=== PATIENT | male | born 1985 | race Caucasian/White ===

== ENCOUNTER 2016-12-26 18:31 | Inpatient (IN) | payer OTHER ==
[2016-12-26 19:22] VITALS: BMI 25.0
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
[2016-12-26] MEDS ORDERED: diphenhydrAMINE HCL 50 MG CAPSULE PO PRN (21:15)
[2016-12-26] MEDS ORDERED: hydrOXYzine PAMOATE 50 MG CAPSULE (FP) PO PRN (21:15)
[2016-12-26] MEDS ORDERED: ACETAMINOPHEN 325 MG TABLET (FP) PO PRN (21:15)
[2016-12-26] MEDS ORDERED: guaiFENesin/D-METHORPHAN HB 10 ML UNIT-DOSE CUPS PO PRN (21:15)
[2016-12-26] MEDS ORDERED: MENTHOL/PHENOL 1 EACH UD MM PRN (21:15)
[2016-12-26] MEDS ORDERED: LOPERAMIDE HCL 2 MG CAPSULE PO PRN (21:15)
[2016-12-26] MEDS ORDERED: MAGNESIUM CITRATE 300 ML BOTTLE PO PRN (21:15)
[2016-12-26] MEDS ORDERED: P-EPHED 60MG/TRIPROLIDI 2.5MG TABLET PO PRN (21:15)
[2016-12-26] MEDS ORDERED: MAGNESIUM HYDROX 2400MG/30ML ORAL SUSPENSION 30 ML CUP PO PRN (21:15)
[2016-12-26] MEDS: THIAMINE HCL 100 MG TABLET (FP) PO SCH (22:12)
[2016-12-26] MEDS: NICOTINE 21 MG/24 HOURS TOPICAL PATCH TD SCH (22:14)
[2016-12-26] MEDS: NICOTINE POLACRILEX 2 MG GUM BC PRN (22:15)
[2016-12-26 23:07] LABS: URINE APPEARANCE CLEAR; URINE BILIRUBIN NEGATIVE (NEGATIVE); URINE BLOOD NEGATIVE (NEGATIVE); URINE COLOR STRAW; URINE GLUCOSE (UA) NEGATIVE (NEGATIVE); URINE KETONE NEGATIVE (NEGATIVE); URINE LEUK ESTERASE NEGATIVE (NEGATIVE); URINE NITRITE NEGATIVE (NEGATIVE); URINE PROTEIN NEGATIVE (NEGATIVE); URINE UROBILINOGEN NEGATIVE E.U./dl (0.2-1.0)
[2016-12-27] MEDS: NICOTINE 21 MG/24 HOURS TOPICAL PATCH TD SCH (09:44)
[2016-12-27] MEDS: PRENATAL VITAMINS W/ FOLIC ACID TABLET (FP) PO SCH (09:44)
[2016-12-27 11:03] LABS: MCHC 33.1 g/dl (32.0-35.9); MEAN CELL VOLUME 93.5 fl (80-96); MEAN PLT VOLUME 9.1 fl (7.5-11.1); PLATELET COUNT 189 K/MM3 (134-434); WHITE BLOOD COUNT 6.7 K/mm3 (4.0-10.0)
[2016-12-27 11:14] LABS: ALBUMIN 3.9 g/dl (3.4-5.0); ANION GAP 9 (8-16); CO2 30 mmol/L (21-32); GLUCOSE,RANDOM 109 mg/dL (74-106); SGOT/AST 44 U/L (15-37); SGPT/ALT 110 U/L (12-78)
[2016-12-27 11:16] LABS: ALK PHOS 79 U/L (45-117); BILIRUBIN,TOTAL 0.6 mg/dL (0.2-1.0); TOT PROT 6.7 g/dl (6.4-8.2)
[2016-12-27 12:03] LABS: HIV 1 & 2 AB NEGATIVE; HIV 1 AGp24 NEGATIVE
--- NOTE | 2016-12-27 12:37 | EKG ---
Test Reason : Blood Pressure : / mmHG Vent. Rate : 090 BPM Atrial Rate : 090 BPM P-R Int : 134 ms QRS Dur : 090 ms QT Int : 356 ms P-R-T Axes : 058 056 044 degrees QTc Int : 435 ms NORMAL SINUS RHYTHM NORMAL ECG NO PREVIOUS ECGS AVAILABLE Confirmed by JAQUAN URRUTIA MD ([id number]) on 12/27/2016 12:36:55 PM Referred By: Confirmed By:JAQUAN URRUTIA MD
[2016-12-27] MEDS: THIAMINE HCL 100 MG TABLET (FP) PO SCH (21:37)
[2016-12-27] MEDS: NICOTINE POLACRILEX 2 MG GUM BC PRN (21:39)
[2016-12-28] MEDS: NICOTINE 21 MG/24 HOURS TOPICAL PATCH TD SCH ×2 (09:49→10:59)
[2016-12-28] MEDS: PRENATAL VITAMINS W/ FOLIC ACID TABLET (FP) PO SCH (09:49)
[2016-12-28] MEDS: SELENIUM SULFIDE 2.5% LOTION 4 OZ. TP SCH (09:50)
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
[2016-12-28] MEDS: IBUPROFEN 400 MG TABLET (FP) PO PRN (12:11)
[2016-12-28] MEDS: THIAMINE HCL 100 MG TABLET (FP) PO SCH (21:52)
[2016-12-28] MEDS: QUEtiapine FUMARATE 100 MG TABLET (FP) PO SCH (21:52)
[2016-12-29] MEDS: NICOTINE POLACRILEX 2 MG GUM BC PRN (10:21)
[2016-12-29] MEDS: PRENATAL VITAMINS W/ FOLIC ACID TABLET (FP) PO SCH (10:21)
[2016-12-29] MEDS: SELENIUM SULFIDE 2.5% LOTION 4 OZ. TP SCH (10:22)
[2016-12-29] MEDS: NICOTINE 21 MG/24 HOURS TOPICAL PATCH TD SCH (10:23)
[2016-12-29] MEDS: QUEtiapine FUMARATE 100 MG TABLET (FP) PO SCH (22:12)
[2016-12-29] MEDS: THIAMINE HCL 100 MG TABLET (FP) PO SCH (22:12)
[2016-12-30] MEDS: SELENIUM SULFIDE 2.5% LOTION 4 OZ. TP SCH (09:47)
[2016-12-30] MEDS: NICOTINE 21 MG/24 HOURS TOPICAL PATCH TD SCH (09:47)
[2016-12-30] MEDS: PRENATAL VITAMINS W/ FOLIC ACID TABLET (FP) PO SCH (09:47)
[2016-12-30] MEDS: NICOTINE POLACRILEX 2 MG GUM BC PRN (09:50)
[2016-12-30] MEDS: THIAMINE HCL 100 MG TABLET (FP) PO SCH (22:01)
[2016-12-30] MEDS: QUEtiapine FUMARATE 100 MG TABLET (FP) PO SCH (22:01)
[2016-12-31] MEDS: PRENATAL VITAMINS W/ FOLIC ACID TABLET (FP) PO SCH (09:59)
[2016-12-31] MEDS: NICOTINE 21 MG/24 HOURS TOPICAL PATCH TD SCH (09:59)
[2016-12-31] MEDS: SELENIUM SULFIDE 2.5% LOTION 4 OZ. TP SCH (10:01)
[2016-12-31] MEDS: NICOTINE POLACRILEX 2 MG GUM BC PRN ×2 (10:02→21:51)
[2016-12-31] MEDS: THIAMINE HCL 100 MG TABLET (FP) PO SCH (21:50)
[2016-12-31] MEDS: QUEtiapine FUMARATE 100 MG TABLET (FP) PO SCH (21:50)
[2017-01-01] MEDS: NICOTINE 21 MG/24 HOURS TOPICAL PATCH TD SCH (09:56)
[2017-01-01] MEDS: PRENATAL VITAMINS W/ FOLIC ACID TABLET (FP) PO SCH (09:56)
[2017-01-01] MEDS: SELENIUM SULFIDE 2.5% LOTION 4 OZ. TP SCH (10:00)
[2017-01-01] MEDS: MAG HYDROX/AL HYDROX/SIMETH 30 ML UNIT-DOSE CUP PO PRN (12:54)
[2017-01-01] MEDS: NICOTINE POLACRILEX 2 MG GUM BC PRN (21:51)
[2017-01-01] MEDS: QUEtiapine FUMARATE 100 MG TABLET (FP) PO SCH (21:51)
[2017-01-01] MEDS: THIAMINE HCL 100 MG TABLET (FP) PO SCH (21:51)
[2017-01-02] MEDS: PRENATAL VITAMINS W/ FOLIC ACID TABLET (FP) PO SCH (11:07)
[2017-01-02] MEDS: SELENIUM SULFIDE 2.5% LOTION 4 OZ. TP SCH (11:07)
[2017-01-02] MEDS: NICOTINE 21 MG/24 HOURS TOPICAL PATCH TD SCH (11:09)
[2017-01-02] MEDS: NICOTINE POLACRILEX 2 MG GUM BC PRN (11:12)
[2017-01-02] MEDS: CLOTRIMAZOLE/BETAMET DIPROP 15 GM TUBE TP SCH (22:23)
[2017-01-02] MEDS: QUEtiapine FUMARATE 100 MG TABLET (FP) PO SCH (22:23)
[2017-01-02] MEDS: THIAMINE HCL 100 MG TABLET (FP) PO SCH (22:23)
[2017-01-02] MEDS: IBUPROFEN 400 MG TABLET (FP) PO PRN (22:25)
[2017-01-03] MEDS: CLOTRIMAZOLE/BETAMET DIPROP 15 GM TUBE TP SCH ×2 (10:13→21:50)
[2017-01-03] MEDS: SELENIUM SULFIDE 2.5% LOTION 4 OZ. TP SCH (10:13)
[2017-01-03] MEDS: PRENATAL VITAMINS W/ FOLIC ACID TABLET (FP) PO SCH (10:14)
[2017-01-03] MEDS: NICOTINE 21 MG/24 HOURS TOPICAL PATCH TD SCH (10:14)
[2017-01-03] MEDS: IBUPROFEN 400 MG TABLET (FP) PO PRN (10:16)
[2017-01-03] MEDS: MAG HYDROX/AL HYDROX/SIMETH 30 ML UNIT-DOSE CUP PO PRN (10:56)
[2017-01-03] MEDS: QUEtiapine FUMARATE 100 MG TABLET (FP) PO SCH (21:50)
[2017-01-03] MEDS: THIAMINE HCL 100 MG TABLET (FP) PO SCH (21:50)
[2017-01-04] MEDS: PRENATAL VITAMINS W/ FOLIC ACID TABLET (FP) PO SCH (10:01)
[2017-01-04] MEDS: NICOTINE 21 MG/24 HOURS TOPICAL PATCH TD SCH (10:02)
[2017-01-04] MEDS: CLOTRIMAZOLE/BETAMET DIPROP 15 GM TUBE TP SCH ×2 (10:02→21:30)
[2017-01-04] MEDS: NICOTINE POLACRILEX 2 MG GUM BC PRN (10:03)
[2017-01-04] MEDS: SELENIUM SULFIDE 2.5% LOTION 4 OZ. TP SCH (10:05)
--- NOTE | 2017-01-04 10:19 | PN ---
Psychiatric Progress Note Vital Signs: Vital Signs Period Temp Pulse Resp BP Sys/Astorga Pulse Ox Last 24 Hr 98.0 F 95 18-18 134/80 Date of Session: 01/04/17 Chief Complaint:: Insomnia HPI: Patient addressing Opoid and Cocaine Dependence comorbid with Nicotine Dependence and Mood Disorder ROS: Hepatitis C Current Medications: Active Medications Generic Name Dose Route Start Last Admin Trade Name Freq PRN Reason Stop Dose Admin Al Hydroxide/Mg Hydroxide 30 ml 12/26/16 21:15 01/03/17 10:56 Mylanta Oral Suspension - PO 30 ml Q6H PRN Administration DYSPEPSIA Clotrimazole 1 applic 01/02/17 22:00 01/04/17 10:02 Lotrisone Cream (Small Tube) TP Not Given BID KYLAH Diphenhydramine HCl 50 mg 12/26/16 21:15 Benadryl - PO HSMR1 PRN INSOMNIA Eucalyptus/Menthol/Phenol/Sorbitol 1 each 12/26/16 21:15 Cepastat Lozenge - MM Q4H PRN SORE THROAT Guaifenesin 10 ml 12/26/16 21:15 Robitussin Dm - PO Q6H PRN COUGH Hydroxyzine Pamoate 50 mg 12/26/16 21:15 Vistaril - PO Q4H PRN AGITATION Ibuprofen 400 mg 12/26/16 21:15 01/03/17 10:16 Motrin - PO 400 mg Q6H PRN Administration SEVERE PAIN Loperamide HCl 4 mg 12/26/16 21:15 Imodium - PO Q6H PRN DIARRHEA Magnesium Citrate 300 ml 12/26/16 21:15 Citroma - PO Q48H PRN CONSTIPATION Magnesium Hydroxide 30 ml 12/26/16 21:15 Milk Of Magnesia - PO DAILY PRN CONSTIPATION Nicotine 21 mg 12/26/16 21:15 01/04/17 10:02 Nicoderm Patch - TD 21 mg DAILY KYLAH Administration Nicotine Polacrilex 2 mg 12/26/16 21:15 01/04/17 10:03 Nicorette Gum - BC 2 mg Q2H PRN Administration NICOTINE REPLACEMENT RX Multivit/Folic Acid/Iron 1 tab 12/27/16 10:00 01/04/17 10:01 Vitamins (Sjr) - PO 1 tab DAILY KYLAH Administration Pseudoephedrine/Triprolidine 1 combo 12/26/16 21:15 Actifed - PO TID PRN NASAL CONGESTION Quetiapine Fumarate 100 mg 12/28/16 22:00 01/03/17 21:50 Seroquel - PO 100 mg HS KYLAH Administration Thiamine HCl 100 mg 12/26/16 22:00 01/03/17 21:50 Vitamin B1 - PO 100 mg HS KYLAH Administration Medication(s) Change(s): Increase Seroquel dosage to 200 mg po HS Current Side Effect: No Lab tests ordered: No Lab tests reviewed: Yes Provider note:: Patient reports experiencing difficulty to sleep. Told instructional writer that he has been sleeping poorly despite taking Seroquel 100 mg po HS. Claims that in the past, he was on Seroquel 200 mg po Hs and slept well on that dose. Total face to face time:: 25 Mental Status Exam - Mental Status Exam Alert and Oriented to: Time, Place, Person Cognitive Function: Fair Patient Appearance: Well Groomed Mood: Hopeful, Euthymic Affect: Appropriate Patient Behavior: Cooperative Speech Pattern: Clear Voice Loudness: Normal Thought Process: Intact Thought Disorder: Not Present Hallucinations: Denies Suicidal Ideation: Denies Homicidal Ideation: Denies Insight/Judgement: Fair Sleep: Poorly Appetite: Good Muscle strength/Tone: Normal Gait/Station: Normal Psychiatric Treatment Plan - Problem List (1) Opioid dependence Current Visit: No (2) Cocaine dependence, uncomplicated Current Visit: No (3) Nicotine dependence Current Visit: No Qualifiers: Nicotine product type: cigarettes Substance use status: uncomplicated Qualified Code(s): F17.210 - Nicotine dependence, cigarettes, uncomplicated (4) Mood disorder Current Visit: Yes (5) Hepatitis C Current Visit: Yes Initial treatment plan: 1) Discontinue Seroquel 100 mg po HS. 2) Start Seroquel 200 mg po HS. 3) Monitor progress
[2017-01-04] MEDS: IBUPROFEN 400 MG TABLET (FP) PO PRN (19:54)
[2017-01-04] MEDS: THIAMINE HCL 100 MG TABLET (FP) PO SCH (21:30)
[2017-01-04] MEDS: QUEtiapine FUMARATE 200 MG TABLET PO SCH (21:30)
[2017-01-05] MEDS: CLOTRIMAZOLE/BETAMET DIPROP 15 GM TUBE TP SCH ×2 (10:14→21:31)
[2017-01-05] MEDS: PRENATAL VITAMINS W/ FOLIC ACID TABLET (FP) PO SCH (10:14)
[2017-01-05] MEDS: NICOTINE 21 MG/24 HOURS TOPICAL PATCH TD SCH (10:14)
[2017-01-05] MEDS: MAG HYDROX/AL HYDROX/SIMETH 30 ML UNIT-DOSE CUP PO PRN (11:49)
[2017-01-05] MEDS: THIAMINE HCL 100 MG TABLET (FP) PO SCH (21:30)
[2017-01-05] MEDS: QUEtiapine FUMARATE 200 MG TABLET PO SCH (21:30)
[2017-01-05] MEDS: RANITIDINE HCL 150 MG TABLET (FP) PO SCH (21:30)
[2017-01-05] MEDS: IBUPROFEN 400 MG TABLET (FP) PO PRN (21:33)
[2017-01-06] MEDS: NICOTINE 21 MG/24 HOURS TOPICAL PATCH TD SCH (09:55)
[2017-01-06] MEDS: RANITIDINE HCL 150 MG TABLET (FP) PO SCH ×2 (09:55→21:22)
[2017-01-06] MEDS: PRENATAL VITAMINS W/ FOLIC ACID TABLET (FP) PO SCH (09:55)
[2017-01-06] MEDS: SELENIUM SULFIDE 2.5% LOTION 4 OZ. TP SCH (09:56)
[2017-01-06] MEDS: CLOTRIMAZOLE/BETAMET DIPROP 15 GM TUBE TP SCH ×2 (09:56→21:22)
[2017-01-06] MEDS: THIAMINE HCL 100 MG TABLET (FP) PO SCH (21:22)
[2017-01-06] MEDS: QUEtiapine FUMARATE 200 MG TABLET PO SCH (21:22)
[2017-01-06] MEDS: IBUPROFEN 400 MG TABLET (FP) PO PRN (21:23)
[2017-01-07] MEDS: NICOTINE 21 MG/24 HOURS TOPICAL PATCH TD SCH (10:02)
[2017-01-07] MEDS: RANITIDINE HCL 150 MG TABLET (FP) PO SCH ×2 (10:02→21:47)
[2017-01-07] MEDS: PRENATAL VITAMINS W/ FOLIC ACID TABLET (FP) PO SCH (10:02)
[2017-01-07] MEDS: CLOTRIMAZOLE/BETAMET DIPROP 15 GM TUBE TP SCH ×2 (10:03→21:47)
[2017-01-07] MEDS: SELENIUM SULFIDE 2.5% LOTION 4 OZ. TP SCH (10:03)
[2017-01-07] MEDS: IBUPROFEN 400 MG TABLET (FP) PO PRN (13:41)
[2017-01-07] MEDS: THIAMINE HCL 100 MG TABLET (FP) PO SCH (21:47)
[2017-01-07] MEDS: QUEtiapine FUMARATE 200 MG TABLET PO SCH (21:47)
[2017-01-08] MEDS: CLOTRIMAZOLE/BETAMET DIPROP 15 GM TUBE TP SCH ×2 (10:01→21:39)
[2017-01-08] MEDS: SELENIUM SULFIDE 2.5% LOTION 4 OZ. TP SCH (10:01)
[2017-01-08] MEDS: RANITIDINE HCL 150 MG TABLET (FP) PO SCH ×2 (10:01→21:39)
[2017-01-08] MEDS: PRENATAL VITAMINS W/ FOLIC ACID TABLET (FP) PO SCH (10:01)
[2017-01-08] MEDS: NICOTINE 21 MG/24 HOURS TOPICAL PATCH TD SCH (10:02)
[2017-01-08] MEDS: IBUPROFEN 400 MG TABLET (FP) PO PRN (12:12)
[2017-01-08] MEDS: THIAMINE HCL 100 MG TABLET (FP) PO SCH (21:39)
[2017-01-08] MEDS: QUEtiapine FUMARATE 200 MG TABLET PO SCH (21:39)
[2017-01-09] MEDS: IBUPROFEN 400 MG TABLET (FP) PO PRN (09:04)
[2017-01-09] MEDS: CLOTRIMAZOLE/BETAMET DIPROP 15 GM TUBE TP SCH ×2 (09:05→21:57)
[2017-01-09] MEDS: PRENATAL VITAMINS W/ FOLIC ACID TABLET (FP) PO SCH (09:05)
[2017-01-09] MEDS: RANITIDINE HCL 150 MG TABLET (FP) PO SCH ×2 (09:06→21:57)
[2017-01-09] MEDS: SELENIUM SULFIDE 2.5% LOTION 4 OZ. TP SCH (09:07)
[2017-01-09] MEDS: NICOTINE 21 MG/24 HOURS TOPICAL PATCH TD SCH (09:07)
[2017-01-09] MEDS ORDERED: LIDOCAINE VISCOUS 2% ORAL/TOP 20 ML UNIT-DOSE CUP MM PRN (13:23)
[2017-01-09] MEDS: THIAMINE HCL 100 MG TABLET (FP) PO SCH (21:56)
[2017-01-09] MEDS: QUEtiapine FUMARATE 200 MG TABLET PO SCH (21:56)
[2017-01-10] MEDS: RANITIDINE HCL 150 MG TABLET (FP) PO SCH ×2 (09:49→21:28)
[2017-01-10] MEDS: NICOTINE 21 MG/24 HOURS TOPICAL PATCH TD SCH (09:49)
[2017-01-10] MEDS: CLOTRIMAZOLE/BETAMET DIPROP 15 GM TUBE TP SCH ×2 (09:49→21:28)
[2017-01-10] MEDS: PRENATAL VITAMINS W/ FOLIC ACID TABLET (FP) PO SCH (09:49)
[2017-01-10] MEDS: IBUPROFEN 600 MG TABLET (FP) PO PRN ×2 (09:50→23:14)
[2017-01-10] MEDS: SELENIUM SULFIDE 2.5% LOTION 4 OZ. TP SCH (09:50)
[2017-01-10] MEDS: QUEtiapine FUMARATE 200 MG TABLET PO SCH (21:28)
[2017-01-10] MEDS: THIAMINE HCL 100 MG TABLET (FP) PO SCH (21:28)
[2017-01-11] MEDS: PRENATAL VITAMINS W/ FOLIC ACID TABLET (FP) PO SCH (09:44)
[2017-01-11] MEDS: IBUPROFEN 600 MG TABLET (FP) PO PRN (09:44)
[2017-01-11] MEDS: RANITIDINE HCL 150 MG TABLET (FP) PO SCH ×2 (09:44→21:44)
[2017-01-11] MEDS: CLOTRIMAZOLE/BETAMET DIPROP 15 GM TUBE TP SCH ×2 (09:45→21:44)
[2017-01-11] MEDS: SELENIUM SULFIDE 2.5% LOTION 4 OZ. TP SCH (09:45)
[2017-01-11] MEDS: NICOTINE 21 MG/24 HOURS TOPICAL PATCH TD SCH (09:46)
[2017-01-11] MEDS: QUEtiapine FUMARATE 200 MG TABLET PO SCH (21:44)
[2017-01-11] MEDS: THIAMINE HCL 100 MG TABLET (FP) PO SCH (21:44)
[2017-01-12] MEDS: NICOTINE 21 MG/24 HOURS TOPICAL PATCH TD SCH (09:56)
[2017-01-12] MEDS: RANITIDINE HCL 150 MG TABLET (FP) PO SCH ×2 (09:56→21:50)
[2017-01-12] MEDS: CLOTRIMAZOLE/BETAMET DIPROP 15 GM TUBE TP SCH ×2 (09:56→21:51)
[2017-01-12] MEDS: PRENATAL VITAMINS W/ FOLIC ACID TABLET (FP) PO SCH (09:56)
[2017-01-12] MEDS: SELENIUM SULFIDE 2.5% LOTION 4 OZ. TP SCH (09:57)
[2017-01-12] MEDS: NICOTINE POLACRILEX 2 MG GUM BC PRN (09:58)
[2017-01-12] MEDS: THIAMINE HCL 100 MG TABLET (FP) PO SCH (21:50)
[2017-01-12] MEDS: QUEtiapine FUMARATE 200 MG TABLET PO SCH (21:50)
[2017-01-12] MEDS: IBUPROFEN 600 MG TABLET (FP) PO PRN (21:52)
[2017-01-13] MEDS: PRENATAL VITAMINS W/ FOLIC ACID TABLET (FP) PO SCH (10:09)
[2017-01-13] MEDS: RANITIDINE HCL 150 MG TABLET (FP) PO SCH ×2 (10:09→21:37)
[2017-01-13] MEDS: CLOTRIMAZOLE/BETAMET DIPROP 15 GM TUBE TP SCH ×2 (10:10→21:38)
[2017-01-13] MEDS: NICOTINE 21 MG/24 HOURS TOPICAL PATCH TD SCH (10:10)
[2017-01-13] MEDS ORDERED: COLLOIDAL OATMEAL 1 BAR EACH TP PRN (13:08)
[2017-01-13] MEDS: SELENIUM SULFIDE 2.5% LOTION 4 OZ. TP SCH (14:32)
[2017-01-13] MEDS: QUEtiapine FUMARATE 200 MG TABLET PO SCH (21:37)
[2017-01-13] MEDS: THIAMINE HCL 100 MG TABLET (FP) PO SCH (21:37)
[2017-01-14] MEDS: PRENATAL VITAMINS W/ FOLIC ACID TABLET (FP) PO SCH (10:02)
[2017-01-14] MEDS: RANITIDINE HCL 150 MG TABLET (FP) PO SCH ×2 (10:02→21:25)
[2017-01-14] MEDS: NICOTINE 21 MG/24 HOURS TOPICAL PATCH TD SCH (10:02)
[2017-01-14] MEDS: CLOTRIMAZOLE/BETAMET DIPROP 15 GM TUBE TP SCH ×2 (10:02→21:25)
[2017-01-14] MEDS: QUEtiapine FUMARATE 200 MG TABLET PO SCH (21:25)
[2017-01-14] MEDS: THIAMINE HCL 100 MG TABLET (FP) PO SCH (21:25)
[2017-01-15] MEDS: NICOTINE 21 MG/24 HOURS TOPICAL PATCH TD SCH (10:04)
[2017-01-15] MEDS: PRENATAL VITAMINS W/ FOLIC ACID TABLET (FP) PO SCH (10:04)
[2017-01-15] MEDS: RANITIDINE HCL 150 MG TABLET (FP) PO SCH ×2 (10:04→21:28)
[2017-01-15] MEDS: CLOTRIMAZOLE/BETAMET DIPROP 15 GM TUBE TP SCH ×2 (10:05→21:28)
[2017-01-15] MEDS: IBUPROFEN 600 MG TABLET (FP) PO PRN (12:47)
[2017-01-15] MEDS: QUEtiapine FUMARATE 200 MG TABLET PO SCH (21:28)
[2017-01-15] MEDS: THIAMINE HCL 100 MG TABLET (FP) PO SCH (21:28)
[2017-01-16] MEDS: PRENATAL VITAMINS W/ FOLIC ACID TABLET (FP) PO SCH (09:58)
[2017-01-16] MEDS: RANITIDINE HCL 150 MG TABLET (FP) PO SCH ×2 (09:58→21:42)
[2017-01-16] MEDS: NICOTINE 21 MG/24 HOURS TOPICAL PATCH TD SCH (09:58)
[2017-01-16] MEDS: NICOTINE POLACRILEX 2 MG GUM BC PRN (10:00)
[2017-01-16] MEDS: CLOTRIMAZOLE/BETAMET DIPROP 15 GM TUBE TP SCH ×2 (10:00→21:43)
[2017-01-16] MEDS: SELENIUM SULFIDE 2.5% LOTION 4 OZ. TP SCH (10:00)
[2017-01-16] MEDS: IBUPROFEN 600 MG TABLET (FP) PO PRN (12:14)
[2017-01-16] MEDS: QUEtiapine FUMARATE 200 MG TABLET PO SCH (21:42)
[2017-01-16] MEDS: THIAMINE HCL 100 MG TABLET (FP) PO SCH (21:42)
[2017-01-17] MEDS: PRENATAL VITAMINS W/ FOLIC ACID TABLET (FP) PO SCH (09:37)
[2017-01-17] MEDS: RANITIDINE HCL 150 MG TABLET (FP) PO SCH ×3 (09:37→21:56)
[2017-01-17] MEDS: NICOTINE 21 MG/24 HOURS TOPICAL PATCH TD SCH (09:37)
[2017-01-17] MEDS: CLOTRIMAZOLE/BETAMET DIPROP 15 GM TUBE TP SCH ×3 (09:37→21:55)
--- NOTE | 2017-01-17 19:55 | PN ---
S Progress Note Note: RECEIVED NURSE INFORMED PATIENT WAS ADMITTED ON 12/26/16 NEEDS DIETARY ORDER
[2017-01-17] MEDS: QUEtiapine FUMARATE 200 MG TABLET PO SCH ×2 (21:34→21:55)
[2017-01-17] MEDS: THIAMINE HCL 100 MG TABLET (FP) PO SCH ×2 (21:34→21:55)
[2017-01-17] MEDS ORDERED: COLLOIDAL OATMEAL 1 BAR EACH TP PRN (21:43)
[2017-01-17] MEDS ORDERED: diphenhydrAMINE HCL 50 MG CAPSULE PO PRN (21:44)
[2017-01-17] MEDS ORDERED: LIDOCAINE VISCOUS 2% ORAL/TOP 20 ML UNIT-DOSE CUP MM PRN (21:44)
[2017-01-17] MEDS ORDERED: hydrOXYzine PAMOATE 50 MG CAPSULE (FP) PO PRN (21:44)
[2017-01-17] MEDS ORDERED: guaiFENesin/D-METHORPHAN HB 10 ML UNIT-DOSE CUPS PO PRN (21:44)
[2017-01-17] MEDS ORDERED: LOPERAMIDE HCL 2 MG CAPSULE PO PRN (21:45)
[2017-01-17] MEDS ORDERED: MAG HYDROX/AL HYDROX/SIMETH 30 ML UNIT-DOSE CUP PO PRN (21:45)
[2017-01-17] MEDS ORDERED: MAGNESIUM HYDROX 2400MG/30ML ORAL SUSPENSION 30 ML CUP PO PRN (21:46)
[2017-01-17] MEDS ORDERED: MAGNESIUM CITRATE 300 ML BOTTLE PO PRN (21:46)
[2017-01-17] MEDS ORDERED: NICOTINE POLACRILEX 2 MG GUM BUC PRN (21:47)
[2017-01-17] MEDS ORDERED: MENTHOL/PHENOL 1 EACH UD MM PRN (21:47)
[2017-01-17] MEDS ORDERED: P-EPHED 60MG/TRIPROLIDI 2.5MG TABLET PO PRN (21:48)
[2017-01-18] MEDS: PRENATAL VITAMINS W/ FOLIC ACID TABLET (FP) PO SCH (10:08)
[2017-01-18] MEDS: NICOTINE 21 MG/24 HOURS TOPICAL PATCH TD SCH (10:08)
[2017-01-18] MEDS: SELENIUM SULFIDE 2.5% LOTION 4 OZ. TP SCH (10:09)
[2017-01-18] MEDS: RANITIDINE HCL 150 MG TABLET (FP) PO SCH ×2 (10:09→21:38)
[2017-01-18] MEDS: CLOTRIMAZOLE/BETAMET DIPROP 15 GM TUBE TP SCH ×2 (10:09→21:38)
[2017-01-18] MEDS: QUEtiapine FUMARATE 200 MG TABLET PO SCH (21:38)
[2017-01-18] MEDS: THIAMINE HCL 100 MG TABLET (FP) PO SCH (21:38)
[2017-01-19] MEDS: NICOTINE 21 MG/24 HOURS TOPICAL PATCH TD SCH (10:14)
[2017-01-19] MEDS: PRENATAL VITAMINS W/ FOLIC ACID TABLET (FP) PO SCH (10:15)
[2017-01-19] MEDS: RANITIDINE HCL 150 MG TABLET (FP) PO SCH ×2 (10:15→21:31)
[2017-01-19] MEDS: CLOTRIMAZOLE/BETAMET DIPROP 15 GM TUBE TP SCH ×2 (10:17→21:32)
[2017-01-19] MEDS: IBUPROFEN 600 MG TABLET (FP) PO PRN (10:18)
[2017-01-19] MEDS: QUEtiapine FUMARATE 200 MG TABLET PO SCH (21:31)
[2017-01-19] MEDS: THIAMINE HCL 100 MG TABLET (FP) PO SCH (21:32)
[2017-01-20] MEDS: RANITIDINE HCL 150 MG TABLET (FP) PO SCH ×2 (10:01→21:49)
[2017-01-20] MEDS: PRENATAL VITAMINS W/ FOLIC ACID TABLET (FP) PO SCH (10:01)
[2017-01-20] MEDS: NICOTINE 21 MG/24 HOURS TOPICAL PATCH TD SCH (10:02)
[2017-01-20] MEDS: CLOTRIMAZOLE/BETAMET DIPROP 15 GM TUBE TP SCH ×2 (10:02→21:49)
[2017-01-20] MEDS: SELENIUM SULFIDE 2.5% LOTION 4 OZ. TP SCH (10:04)
[2017-01-20] MEDS: IBUPROFEN 600 MG TABLET (FP) PO PRN (10:05)
[2017-01-20] MEDS: QUEtiapine FUMARATE 200 MG TABLET PO SCH (21:49)
[2017-01-20] MEDS: THIAMINE HCL 100 MG TABLET (FP) PO SCH (21:50)
[2017-01-21] MEDS: CLOTRIMAZOLE/BETAMET DIPROP 15 GM TUBE TP SCH ×2 (09:46→21:57)
[2017-01-21] MEDS: PRENATAL VITAMINS W/ FOLIC ACID TABLET (FP) PO SCH (09:46)
[2017-01-21] MEDS: RANITIDINE HCL 150 MG TABLET (FP) PO SCH ×2 (09:46→21:56)
[2017-01-21] MEDS: NICOTINE 21 MG/24 HOURS TOPICAL PATCH TD SCH (09:46)
[2017-01-21] MEDS: THIAMINE HCL 100 MG TABLET (FP) PO SCH (21:56)
[2017-01-21] MEDS: QUEtiapine FUMARATE 200 MG TABLET PO SCH (21:56)
[2017-01-21] MEDS: IBUPROFEN 600 MG TABLET (FP) PO PRN (21:59)
[2017-01-22] MEDS: NICOTINE 21 MG/24 HOURS TOPICAL PATCH TD SCH (10:30)
[2017-01-22] MEDS: RANITIDINE HCL 150 MG TABLET (FP) PO SCH ×2 (10:30→21:44)
[2017-01-22] MEDS: PRENATAL VITAMINS W/ FOLIC ACID TABLET (FP) PO SCH (10:30)
[2017-01-22] MEDS: CLOTRIMAZOLE/BETAMET DIPROP 15 GM TUBE TP SCH ×2 (10:31→21:46)
[2017-01-22] MEDS: THIAMINE HCL 100 MG TABLET (FP) PO SCH (21:44)
[2017-01-22] MEDS: QUEtiapine FUMARATE 200 MG TABLET PO SCH (21:44)
[2017-01-23 06:47] VITALS: BP 117/73; PULSE 101; TEMP 97.5
[2017-01-23] MEDS: SELENIUM SULFIDE 2.5% LOTION 4 OZ. TP SCH (10:13)
[2017-01-23] MEDS: RANITIDINE HCL 150 MG TABLET (FP) PO SCH (10:13)
[2017-01-23] MEDS: NICOTINE 21 MG/24 HOURS TOPICAL PATCH TD SCH (10:13)
[2017-01-23] MEDS: CLOTRIMAZOLE/BETAMET DIPROP 15 GM TUBE TP SCH (10:13)
[2017-01-23] MEDS: PRENATAL VITAMINS W/ FOLIC ACID TABLET (FP) PO SCH (10:13)
--- NOTE | 2017-01-23 10:18 | PN ---
Psychiatric Progress Note Vital Signs: Vital Signs Period Temp Pulse Resp BP Sys/Astorga Pulse Ox Last 24 Hr 97.5 F 101 16-18 117/73 Date of Session: 01/23/17 Chief Complaint:: discharge visit HPI: Patient addressing Opoid and Cocaine Dependence comorbid with Nicotine Dependence and Mood Disorder ROS: WNL Current Medications: Active Medications Generic Name Dose Route Start Last Admin Trade Name Freq PRN Reason Stop Dose Admin Al Hydroxide/Mg Hydroxide 30 ml 01/17/17 21:45 Mylanta Oral Suspension - PO Q6H PRN DYSPEPSIA Clotrimazole 1 applic 01/17/17 22:00 01/22/17 21:46 Lotrisone Cream (Small Tube) TP Not Given BID KYLAH Colloidal Oatmeal 1 applic 01/17/17 21:43 Aveeno Soap - TP DAILY PRN HYGEINE Diphenhydramine HCl 50 mg 01/17/17 21:44 Benadryl - PO HSMR1 PRN INSOMNIA Eucalyptus/Menthol/Phenol/Sorbitol 1 each 01/17/17 21:47 Cepastat Lozenge - MM Q4H PRN SORE THROAT Guaifenesin 10 ml 01/17/17 21:44 Robitussin Dm - PO Q6H PRN COUGH Hydroxyzine Pamoate 50 mg 01/17/17 21:44 Vistaril - PO Q4H PRN AGITATION Ibuprofen 600 mg 01/17/17 21:44 01/21/17 21:59 Motrin - PO 600 mg Q6H PRN Administration SEVERE PAIN Lidocaine HCl 20 ml 01/17/17 21:44 Xylocaine 2% Viscous Oral - MM Q6HPO PRN ORAL PAIN/MOUTH SORES Loperamide HCl 4 mg 01/17/17 21:45 Imodium - PO Q6H PRN DIARRHEA Magnesium Citrate 300 ml 01/17/17 21:46 Citroma - PO Q48H PRN CONSTIPATION Magnesium Hydroxide 30 ml 01/17/17 21:46 Milk Of Magnesia - PO DAILY PRN CONSTIPATION Nicotine 21 mg 01/18/17 10:00 01/22/17 10:30 Nicoderm Patch - TD 21 mg DAILY KYLAH Administration Nicotine Polacrilex 2 mg 01/17/17 21:47 Nicorette Gum - BUC Q2H PRN NICOTINE REPLACEMENT RX Multivit/Folic Acid/Iron 1 tab 12/27/16 10:00 01/22/17 10:30 Vitamins (Sjr) - PO 1 tab DAILY KYLAH Administration Pseudoephedrine/Triprolidine 1 combo 01/17/17 21:48 Actifed - PO TID PRN NASAL CONGESTION Quetiapine Fumarate 200 mg 01/17/17 22:00 01/22/17 21:44 Seroquel - PO 200 mg HS KYLAH Administration Ranitidine HCl 150 mg 01/17/17 22:00 01/22/17 21:44 Zantac - PO 150 mg BID KYLAH Administration Selenium Sulfide 1 applic 01/18/17 10:00 01/20/17 10:04 Selsun 2.5% Lotion - TP 1 applic [id number] KYLAH Administration Thiamine HCl 100 mg 01/17/17 22:00 01/22/17 21:44 Vitamin B1 - PO 100 mg HS KYLAH Administration Current Side Effect: No Lab tests ordered: No Lab tests reviewed: Yes Provider note:: Patient has compelted today his treatment and met his goals, will continue to address his issues at [facility] inpatient treatment program. He focused on importance of changing attitude for utilization of supports to prevent relapses. Patient continues to finging seroquel to be effective, medication well tolerated, scripts provided. patient is stable for discharge. Total face to face time:: 30 Mental Status Exam - Mental Status Exam Alert and Oriented to: Time, Place, Person Cognitive Function: Grossly Intact Patient Appearance: Well Groomed Mood: Hopeful Affect: Appropriate, Mood Congruent Patient Behavior: Appropriate, Cooperative Speech Pattern: Clear, Appropriate Voice Loudness: Normal Thought Process: Intact, Goal Oriented Thought Disorder: Not Present Hallucinations: Denies Suicidal Ideation: Denies Homicidal Ideation: Denies Insight/Judgement: Fair Sleep: Well Appetite: Good Muscle strength/Tone: Normal Gait/Station: Normal Psychiatric Treatment Plan - Problem List (2) Nicotine dependence Qualifiers: Nicotine product type: cigarettes Substance use status: uncomplicated Qualified Code(s): F17.210 - Nicotine dependence, cigarettes, uncomplicated
== END 2017-01-23 10:50 | disposition home or self-care (01) | DRG 772 ==
LOC: YASAS 18:31 → Y5N 19:10 → UNDODISIN 01-17 09:50
PROVIDERS: ADMIT Psychiatry & Neurology Psychiatry; ATTEND Psychiatry & Neurology Psychiatry
PROC: HZ42ZZZ Group Counseling for Substance Abuse Treatment, Cognitive-Behavioral (ICD-10-PCS; principal; 2017-01-23)
DX: F11.20 Opioid dependence, uncomplicated (principal); F14.20 Cocaine dependence, uncomplicated; F17.210 Nicotine dependence, cigarettes, uncomplicated; F39 Unspecified mood [affective] disorder; F31.89 Other bipolar disorder; Z59.0 Homelessness
CPT/HCPCS: 36415; 80053; 81003; 85027; 86593; 87389; 93005; 93010

== ENCOUNTER 2018-06-09 08:32 | Inpatient (IN) | payer OTHER ==
[2018-06-09 09:15] VITALS: BMI 25.8
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
[2018-06-09] MEDS ORDERED: MAG HYDROX/AL HYDROX/SIMETH 30 ML UNIT-DOSE CUP PO PRN (10:16)
[2018-06-09] MEDS ORDERED: P-EPHED 60MG/TRIPROLIDI 2.5MG TABLET PO PRN (10:16)
[2018-06-09] MEDS ORDERED: guaiFENesin/D-METHORPHAN HB 10 ML UNIT-DOSE CUPS PO PRN (10:16)
[2018-06-09] MEDS ORDERED: hydrOXYzine PAMOATE 25 MG CAPSULE (FP) PO PRN (10:16)
[2018-06-09] MEDS ORDERED: LOPERAMIDE HCL 2 MG CAPSULE PO PRN (10:16)
[2018-06-09] MEDS ORDERED: IBUPROFEN 400 MG TABLET (FP) PO PRN (10:16)
[2018-06-09] MEDS ORDERED: MAGNESIUM HYDROX 2400MG/30ML ORAL SUSPENSION 30 ML CUP PO PRN (10:16)
[2018-06-09] MEDS ORDERED: NICOTINE POLACRILEX 4 MG GUM BUC PRN (10:16)
[2018-06-09] MEDS ORDERED: MAGNESIUM CITRATE 300 ML BOTTLE PO PRN (10:16)
[2018-06-09] MEDS ORDERED: ACETAMINOPHEN 325 MG TABLET (FP) PO PRN (10:16)
[2018-06-09] MEDS ORDERED: MENTHOL/PHENOL 1 EACH UD MM PRN (10:16)
[2018-06-09] MEDS ORDERED: METHADONE HCL 10 MG TABLET (FOR DETOX USE ONLY) PO ONE ×2 (11:00→23:00)
[2018-06-09] MEDS: diazePAM 5 MG TABLET PO PRN (12:28)
[2018-06-09] MEDS: NICOTINE 21 MG/24 HOURS TOPICAL PATCH TD SCH (12:29)
[2018-06-09 17:21] LABS: URINE APPEARANCE CLEAR; URINE BILIRUBIN NEGATIVE (<2.0 mg/dL); URINE COLOR YELLOW; URINE GLUCOSE (UA) NEGATIVE (NEGATIVE); URINE KETONE NEGATIVE (NEGATIVE); URINE LEUK ESTERASE NEGATIVE (NEGATIVE); URINE NITRITE NEGATIVE (NEGATIVE); URINE PROTEIN NEGATIVE (NEGATIVE); URINE UROBILINOGEN NEGATIVE mg/dL (0.2-1.0)
--- NOTE | 2018-06-09 18:49 | EKG ---
Test Reason : Blood Pressure : / mmHG Vent. Rate : 069 BPM Atrial Rate : 069 BPM P-R Int : 132 ms QRS Dur : 086 ms QT Int : 402 ms P-R-T Axes : 032 046 034 degrees QTc Int : 430 ms NORMAL SINUS RHYTHM NORMAL ECG WHEN COMPARED WITH ECG OF 26-DEC-2016 21:48, NO SIGNIFICANT CHANGE WAS FOUND Confirmed by JAQUAN URRUTIA MD ([id number]) on 06/09/2018 6:49:47 PM Referred By: Confirmed By:JAQUAN URRUTIA MD
[2018-06-09] MEDS ORDERED: MELATONIN 5 MG TABLETS PO PRN (22:00)
[2018-06-09] MEDS ORDERED: THIAMINE HCL 100 MG TABLET (FP) PO SCH (22:00)
[2018-06-10] MEDS: SODIUM HYPOCHLORITE 0.5% 473 ML- BULK BOTTLE TP SCH ×2 (00:14→09:39)
[2018-06-10] MEDS: diazePAM 5 MG TABLET PO PRN (07:40)
[2018-06-10] MEDS: NICOTINE 21 MG/24 HOURS TOPICAL PATCH TD SCH (09:42)
[2018-06-10] MEDS ORDERED: METHADONE HCL 10 MG TABLET (FOR DETOX USE ONLY) PO ONE (10:00)
[2018-06-10] MEDS ORDERED: PRENATAL VITAMINS W/ FOLIC ACID TABLET (FP) PO SCH (10:00)
--- NOTE | 2018-06-10 10:02 | CONSULT ---
[facility] Psychiatric Consult - Data Date of interview: 06/10/18 Admission source: Self-referred Identifying data: Mr Walker is a 32 years old single male, unemployed, domiciled seeking detox treatment for opioid Substance Abuse History: Reports history of herin use. refer to adiction counselor's summary for further information Medical History: Significant for hepatitis C and history of orthosurgery for fracture of left arm and left leg at age 4. Smokes nicotine 1 ppd Psychiatric History: Patient reports his first psychiatric contact was in 2007, states was court mandated treatment for anger management, saw Dr. Barba and started on Seroquel, then case was closed and stopped medication. Reports one psychiatric hospitalization for 10days at [facility], states was on drugs and father saw him shooting heroin, reports was diagnosed with Bipolar and put on Depakote and Seroquel, states hed a reaction to depakote (EPS). States was on and off Seroquel, while in rehabilitation treatment, states prior to this treatment was in inpatient rehab. program at [facility] the was referred to bed bug exterminator [facility] program and continued his Seroquel 200 mg, he left [facility] in one month and went to penitent[facility] one month without any medications, then referred to [facility]. Reports he takes Seroquell mainly for insomnia and racing thoughts at nights. Physical/Sexual Abuse/Trauma History: Denies history of emotional, physical or sexual abuse
[2018-06-10 10:49] LABS: ALBUMIN 4.2 g/dl (3.4-5.0); ALK PHOS 97 U/L (45-117); ANION GAP 5 MMOL/L (8-16); BILIRUBIN,TOTAL 0.1 mg/dL (0.2-1.0); BLOOD UREA NITROGEN 10 mg/dL (7-18); CALCIUM 9.7 mg/dL (8.5-10.1); CHLORIDE 103 mmol/L (98-107); CO2 32 mmol/L (21-32); CREATININE 0.8 mg/dL (0.7-1.3); GLUCOSE,RANDOM 108 mg/dL (74-106); SGPT/ALT 88 U/L (12-78); SODIUM 140 mmol/L (136-145); TOT PROT 7.4 g/dl (6.4-8.2)
[2018-06-10 10:52] LABS: POTASSIUM 4.7 mmol/L (3.5-5.1); SGOT/AST 38 U/L (15-37)
[2018-06-10 11:03] LABS: HEMATOCRIT 49.2 % (35.4-49); HEMOGLOBIN 16.6 GM/dL (11.7-16.9); MCH 30.9 pg (25.7-33.7); MCHC 33.9 g/dl (32.0-35.9); MEAN CELL VOLUME 91.2 fl (80-96); MEAN PLT VOLUME 10.6 fl (7.5-11.1); PLATELET COUNT 207 K/MM3 (134-434); RBC 5.39 M/mm3 (4.00-5.60); RDW 15.6 % (11.9-15.9)
[2018-06-10 11:16] VITALS: BP 131/67; PULSE 85; TEMP 98.1
--- NOTE | 2018-06-10 11:23 | PN ---
[facility] Progress Note Note: Patient is not on the unit. He signed out against medical advice
--- NOTE | 2018-06-10 13:55 | DS ---
[facility] Detox Discharge Summary Admission Date: 06/09/18 Discharge Date: 06/10/18 - History Present History: Opioid Dependence Additional Comments: Chronic wound (R) graham/tibial area open w/ pinkish granulation tissue at outer edges and yellowish tissue at center. Denies other significant medical problems. - Physical Exam Results Vital Signs: Vital Signs Temperature 98.1 F 06/10/18 10:00 Pulse Rate 85 06/10/18 10:00 Respiratory Rate 18 06/10/18 10:00 Blood Pressure 131/67 06/10/18 10:00 O2 Sat by Pulse Oximetry (%) Pertinent Admission Physical Exam Findings: Opiate withdrawal. Laboratory Tests 06/09/18 06/09/18 06/10/18 10:15 12:43 06:00 WBC 8.0 RBC 5.39 Hgb 16.6 Hct 49.2 H MCV 91.2 MCH 30.9 MCHC 33.9 RDW 15.6 Plt Count 207 MPV 10.6 D Sodium Potassium Chloride Carbon Dioxide Anion Gap BUN Creatinine Creat Clearance w eGFR Random Glucose Calcium Total Bilirubin AST ALT Alkaline Phosphatase Total Protein Albumin Urine Color Yellow Urine Appearance Clear Urine pH 6.0 Ur Specific Emigrant 1.017 Urine Protein Negative Urine Glucose (UA) Negative Urine Ketones Negative Urine Blood Negative Urine Nitrite Negative Urine Bilirubin Negative Urine Urobilinogen Negative Ur Leukocyte Esterase Negative RPR Titer HIV 1&2 Antibody Screen Negative HIV P24 Antigen Negative 06/10/18 06/10/18 06:00 06:00 WBC RBC Hgb Hct MCV MCH MCHC RDW Plt Count MPV Sodium 140 Potassium 4.7 Chloride 103 Carbon Dioxide 32 Anion Gap 5 L BUN 10 Creatinine 0.8 Creat Clearance w eGFR > 60 Random Glucose 108 H Calcium 9.7 Total Bilirubin 0.1 L AST 38 H ALT 88 H Alkaline Phosphatase 97 Total Protein 7.4 Albumin 4.2 Urine Color Urine Appearance Urine pH Ur Specific Emigrant Urine Protein Urine Glucose (UA) Urine Ketones Urine Blood Urine Nitrite Urine Bilirubin Urine Urobilinogen Ur Leukocyte Esterase RPR Titer Nonreactive HIV 1&2 Antibody Screen HIV P24 Antigen Labs reviewed. - Treatment Hospital Course: Detox Protocol Followed (Did not complete detox.), Responded well (Omer current withdrawal symptoms.), Discharged Condition Good - Medication Discharge Medications: Ambulatory Orders Sodium Hypochlorite [Hysept] 473 ml TP BID 06/09/18 - Diagnosis (1) Nicotine dependence Status: Acute Qualifiers: Nicotine product type: cigarettes Substance use status: uncomplicated Qualified Code(s): F17.210 - Nicotine dependence, cigarettes, uncomplicated (2) Chronic wound of extremity Status: Chronic (3) Opioid dependence with withdrawal Status: Chronic - AMA Did Patient Leave Against Medical Advice: Yes
[2018-06-11] MEDS ORDERED: METHADONE HCL 5 MG TABLET (FOR DETOX USE ONLY) PO ONE (10:00)
[2018-06-12] MEDS ORDERED: METHADONE HCL 5 MG TABLET (FOR DETOX USE ONLY) PO ONE (10:00)
[2018-06-13] MEDS ORDERED: METHADONE HCL 10 MG TABLET (FOR DETOX USE ONLY) PO ONE (10:00)
[2018-06-14] MEDS ORDERED: METHADONE HCL 5 MG TABLET (FOR DETOX USE ONLY) PO ONE (06:00)
== END 2018-06-10 10:36 | disposition left against medical advice (07) | DRG 770 ==
LOC: YASAS 08:32 → Y6N 10:39
PROVIDERS: ADMIT Surgery; ATTEND Surgery
PROC: HZ2ZZZZ Detoxification Services for Substance Abuse Treatment (ICD-10-PCS; principal; 2018-06-09)
DX: F11.23 Opioid dependence with withdrawal (principal); F17.210 Nicotine dependence, cigarettes, uncomplicated; B19.20 Unspecified viral hepatitis C without hepatic coma; S81.801A Unspecified open wound, right lower leg, initial encounter; V29.9XXA Motorcycle rider (driver) (passenger) injured in unspecified traffic accident, initial encounter; Y93.89 Activity, other specified; Y92.89 Other specified places as the place of occurrence of the external cause; Y99.8 Other external cause status
CPT/HCPCS: 36415; 80053; 81003; 85027; 86593; 87389; 93005; 93010

== ENCOUNTER 2018-11-05 19:36 | Inpatient (IN) | payer OTHER ==
[2018-11-05 19:57] VITALS: BMI 25.0
--- NOTE | 2018-11-05 20:20 | HP ---
"COWS - Scale Resting Pulse: 2= AR 101-120 Sweatin=Flushed/Facial Moisture Restless Observation: 3= Extraneous Movement Pupil Size: 1= Pupils >than Normal (Pupils = 4 mm) Bone or Joint Aches: 1= Mild Discomfort Runny Nose/ Eye Tearin= Runny Nose/Eyes GI Upset > 30mins: 0= None Tremor Observation: 2= Slight Tremor Visible Yawning Observation: 0= None Anxiety or Irritability: 1=Feels Anxious/Irritable Goose Flesh Skin: 0=Smooth Skin COWS Score: 14 CIWA Score Nausea/Vomitin-No Nausea/No Vomiting Muscle Tremors: 4-Moderate,w/Arms Extend Anxiety: 1-Mildly Anxious Agitation: 1-Slight > Activity Paroxysmal Sweats: 3 (Increased facial moisture) Orientation: 1-Uncertain about Date Tacttile Disturbances: 0-None Auditory Disturbances: 0-None Visual Disturbances: 0-None Headache: 0-None Present CIWA-Ar Total Score: 10 - Admission Criteria OASAS Guidelines: Admission for Medically Managed Detox: Requires at least one of the followin. CIWA greater than 12 2. Seizures within the past 24 hours 3. Delirium tremens within the past 24 hours 4. Hallucinations within the past 24 hours 5. Acute intervention needed for co occurring medical disorder 6. Acute intervention needed for co occurring psychiatric disorder 7. Severe withdrawal that cannot be handled at a lower level of care (continued vomiting, continued diarrhea, abnormal vital signs) requiring intravenous medication and/or fluids 8. Patient presents the following: Acute intervention needed for co-occurring med or psych disorder (Patient was seen in [facility] ED today, 11/05/18, and medicated w / MTD. Patient referred for opiate, alcohol, and benzo detox, management of withdrawal symptoms and elevated potassium level) Admission Criteria Met: Admission criteria met Admission [facility] Chief Complaint: Here for heroin withdrawal with alcohol use. Allergies/Adverse Reactions: Allergies Allergy/AdvReac Type Severity Reaction Status Date / Time divalproex sodium AdvReac Severe stiffness Verified 11/05/18 21:17 [From Depakote] History of Present Illness: Here for opiate detox. Nicotine use since age 13. Alcohol use since age 14. Cocaine use since age 15. Marijuana use since age 15. Benzodiazepine use since age 26. Heroin use since age 18. Current IVDU. Denies sharing needles or works. Seen at [facility] 11/05/18 and admission declined because of elevated potassium level. Medical progress note from [facility] states that K+ must be in normal range prior to admission. States was given Methadone in [facility] - but unsure of dose. Copy of labs reviewed and only significant abnormality K = 5.8 Hx: Hepatits C - no treatment. Denies chest pain, SOB. Denies other significant PMH/PSH MH: Hx Depression on meds - Denies thoughts of harming self or others. Denies seizures and blackouts. Hx: 9 overdoses - last 07/31/18. Girlfriend has a Narcan kit. Search Terms: Alin Walker, 1985 Search Date: 11/05/2018 08:05:05 PM The Drug Utilization Report below displays all of the controlled substance prescriptions, if any, that your patient has filled in the last twelve months. The information displayed on this report is compiled from pharmacy submissions to the Department, and accurately reflects the information as submitted by the pharmacies. This report was requested by: Vivienne Barraza | Reference #: [id number] There are no results for the search terms that you entered. Exam Limitations: No Limitations - Ebola screening Have you traveled outside of the country in the last 21 days: No Have you had contact with anyone from an Ebola affected area: No Have you been sick,other than usual withdrawal symptoms: No Do you have a fever: No - Review of Systems Constitutional: Chills, Diaphoresis, Changes in sleep (Difficulty falling asleep ) EENT: reports: Nose Congestion, Dental Problems (Partials. Chews and swallows okay.) Respiratory: reports: No Symptoms reported Cardiac: reports: No Symptoms Reported GI: reports: Indigestion (acid reflux - takes meds) : reports: No Symptoms Reported Musculoskeletal: reports: Other (Bones are starting to hurt) Neuro: reports: Tremors Endocrine: reports: No Symptoms Reported Hematology: reports: No Symptoms Reported Psychiatric: reports: Judgement Intact, Agitated, Anxious, Depressed, Disorientated (Missed date and day of week) Patient History - Patient Medical History Hx Anemia: No Hx Asthma: No Hx Chronic Obstructive Pulmonary Disease (COPD): No Hx Cancer: No Hx Cardiac Disorders: No Hx Congestive Heart Failure: No Hx Hypertension: No Hx Hypercholesterolemia: No Hx Pacemaker: No HX Cerebrovascular Accident: No Hx Seizures: No Hx Dementia: No Hx Diabetes: No Hx Gastrointestinal Disorders: No Hx Liver Disease: No Hx Genitourinary Disorders: No Hx Sexually Transmitted Disorders: No Hx Renal Disease (ESRD): No Hx Thyroid Disease: No Hx Human Immunodeficiency Virus (HIV): No (LAST NEGATIVE 11/01) Hx Hepatitis C: Yes (unsure - conflicting test results) Hx Depression: No Hx Suicide Attempt: No Hx Bipolar Disorder: No Hx Schizophrenia: No - Patient Surgical History Past Surgical History: No Hx Neurologic Surgery: No Hx Cataract Extraction: No Hx Cardiac Surgery: No Hx Lung Surgery: No Hx Breast Surgery: No Hx Breast Biopsy: No Hx Abdominal Surgery: No Hx Appendectomy: No Hx Cholecystectomy: No Hx Genitourinary Surgery: No Hx Section: No Hx Orthopedic Surgery: Yes (left arm and leg fx when a child AT AGE OF 54 YEARS OLD) Anesthesia Reaction: No - PPD History Previous Implant?: Yes Documented Results: Negative w/o proof Date: 08/22/16 Results: 0 mm PPD to be Administered?: Yes - Smoking Cessation Smoking history: Current every day smoker Have you smoked in the past 12 months: Yes Aproximately how many cigarettes per day: 20 Cigars Per Day: 0 Hx Chewing Tobacco Use: No Initiated information on smoking cessation: Yes 'Breaking Loose' booklet given: 11/05/18 - Substance & Tx. History Hx Alcohol Use: Yes Hx Substance Use: Yes Substance Use Type: Alcohol, Cocaine, Heroin, Marijuana Hx Substance Use Treatment: Yes (detox, rehab) - Substances Abused Alprazolam (Xanax) Route: Oral Frequency: Daily Amount used: 6mg Age of first use: 26 Date of Last Use: 11/04/18 Heroin Route: Injection Frequency: Daily Amount used: 25 bags Age of first use: 26 Date of Last Use: 11/04/18 Alcohol Route: Oral Frequency: 3-6 times per week Amount used: 1 fifth liquor Age of first use: 13 Date of Last Use: 11/04/18 Family Disease History - Family Disease History Family Disease History: Other: Father (living, healthy), Mother (living, healthy ), Sister (one - healthy) Admission Physical Exam BHS - Vital Signs Vital Signs: Vital Signs - 24 hr 11/05/18 19:50 Temperature 98.8 F Pulse Rate 101 H Respiratory 18 Rate Blood Pressure 128/73 - Physical General Appearance: Yes: Nourished, Appropriately Dressed, Mild Distress, Tremorous, Sweating, Anxious HEENTM: Yes: EOMI (Jerking movements of eyes on lateral gaze), Hearing grossly Normal, Normocephalic, NOAH (Pupils 4 mm), Rhinorrhea Respiratory: Yes: Lungs Clear, Normal Breath Sounds, No Respiratory Distress Neck: Yes: No masses,lesions,Nodules, Supple Breast: Yes: Breast Exam Deferred Cardiology: Yes: Regular Rhythm, S1, S2, Tachycardia Abdominal: Yes: Non Tender, Flat, Soft Genitourinary: Yes: Within Normal Limits Back: Yes: Normal Inspection Musculoskeletal: Yes: full range of Motion, Gait Steady Extremities: Yes: Normal Capillary Refill, Normal Inspection, Normal Range of Motion, Non-Tender, Tremors (Mild tremors at rest which increases w/ arms elevated) Neurological: Yes: 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 rock 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 NML intact (Jerking movements of eyes on lateral gaze), Alert, Motor Strength 5/5, Normal Response Integumentary: Yes: Normal Color, Dry, Warm, Track Ledesma (Old and new track ledesma w/o signs of induration or inflammation (Neck, antecubitals, wrists)), Other (Moist feet w/ small cracks between a few toes.) Lymphatic: Yes: Within Normal Limits - Diagnostic (1) Hyperkalemia Current Visit: Yes Status: Acute Comment: 11/05/18 Labs from [facility]/ [facility] ED = Potassium 5.8 (2) Alcohol dependence with uncomplicated withdrawal Current Visit: Yes Status: Acute (3) Cocaine dependence, uncomplicated Current Visit: Yes Status: Chronic (4) Nicotine dependence Current Visit: Yes Status: Chronic Qualifiers: Nicotine product type: cigarettes Substance use status: uncomplicated Qualified Code(s): F17.210 - Nicotine dependence, cigarettes, uncomplicated (5) Opioid dependence with withdrawal Current Visit: Yes Status: Acute (6) Tinea pedis Current Visit: Yes Status: Chronic Qualifiers: Laterality: bilateral Qualified Code(s): B35.3 - Tinea pedis (7) Nystagmus Current Visit: Yes Status: Acute (8) Sedative, hypnotic or anxiolytic dependence with withdrawal, uncomplicated Current Visit: Yes Status: Acute (9) Acid reflux Current Visit: Yes Status: Chronic Qualifiers: Esophagitis presence: without esophagitis Qualified Code(s): K21.9 - Gastro -esophageal reflux disease without esophagitis Cleared for Admission [facility] - Detox or Rehab [facility] Level of Care: Medically Managed Detox Regimen/Protocol: Methadone/Valium S Breath Alcohol Content Breath Alcohol Content: 0 Urine Drug Screen - Results Drug Screen Negative: No Urine Drug Screen Results: THC-Marijuana, PASQUALE-Cocaine, OPI-Opiates, BZO- Benzodiazepines, MTD-Methadone, FEN-Fentanyl"
[2018-11-05] MEDS ORDERED: LACTULOSE 20 GM/30 ML UDC (FOR ORAL USE ONLY) PO ONE (20:48)
[2018-11-05] MEDS ORDERED: LOPERAMIDE HCL 2 MG CAPSULE PO PRN (20:50)
[2018-11-05] MEDS ORDERED: P-EPHED 60MG/TRIPROLIDI 2.5MG TABLET PO PRN (20:50)
[2018-11-05] MEDS ORDERED: diazePAM 5 MG TABLET PO PRN (20:50)
[2018-11-05] MEDS ORDERED: METHADONE HCL 10 MG TABLET (FOR DETOX USE ONLY) PO ONE ×2 (20:50→23:00)
[2018-11-05] MEDS ORDERED: MAG HYDROX/AL HYDROX/SIMETH 30 ML UNIT-DOSE CUP PO PRN (20:50)
[2018-11-05] MEDS ORDERED: MAGNESIUM HYDROX 2400MG/30ML ORAL SUSPENSION 30 ML CUP PO PRN (20:50)
[2018-11-05] MEDS ORDERED: NICOTINE POLACRILEX 2 MG GUM BC PRN (20:50)
[2018-11-05] MEDS ORDERED: MAGNESIUM CITRATE 300 ML BOTTLE PO PRN (20:50)
[2018-11-05] MEDS ORDERED: ACETAMINOPHEN 325 MG TABLET (FP) PO PRN (20:50)
[2018-11-05] MEDS ORDERED: MENTHOL/PHENOL 1 EACH UD MM PRN (20:50)
[2018-11-05] MEDS ORDERED: diazePAM 5 MG TABLET PO ONE (20:50)
[2018-11-05] MEDS ORDERED: IBUPROFEN 400 MG TABLET (FP) PO PRN (20:50)
[2018-11-05] MEDS ORDERED: THIAMINE HCL 100 MG TABLET (FP) PO SCH (22:00)
[2018-11-05] MEDS ORDERED: MELATONIN 5 MG TABLETS PO PRN (22:00)
[2018-11-05] MEDS: TOLNAFTATE 1% POWDER 45 GM POW TP SCH (23:11)
[2018-11-05] MEDS: diazePAM 5 MG TABLET PO SCH (23:11)
[2018-11-05] MEDS ORDERED: SODIUM POLYSTYRENE SULFONATE 15 GM/60 ML BOTTLE PO ONE (23:20)
--- NOTE | 2018-11-05 23:24 | PN ---
BHS Progress Note Note: DC LACTULOSE GIVEN KAYEXALATE 15 GM POW NOW FOR UNTREATED K. 5.8 REPEAT CMP IN AM
[2018-11-05] MEDS: PANTOPRAZOLE 20 MG TABLET (FP) PO SCH (23:38)
[2018-11-06] MEDS: diazePAM 5 MG TABLET PO SCH ×2 (05:51→15:02)
--- NOTE | 2018-11-06 09:52 | PN ---
[facility] CIWA - CIWA Score Nausea/Vomitin-Mild Nausea/No Vomiting Muscle Tremors: 3 Anxiety: 3 Agitation: 3 Paroxysmal Sweats: 3 Orientation: 0-Oriented Tacttile Disturbances: 0-None Auditory Disturbances: 0-None Visual Disturbances: 0-None Headache: 0-None Present CIWA-Ar Total Score: 13 BHS COWS - Scale Resting Pulse: 0= SC 80 or Below Sweatin=Flushed/Facial Moisture Restless Observation: 1= Difficult to Sit Still Pupil Size: 0= Normal to Room Light Bone or Joint Aches: 2= Severe Diffuse Aches Runny Nose/ Eye Tearin= Nasal Congestion GI Upset > 30mins: 0= None Tremor Observation of Outstretched Hands: 2= Slight Tremor Visible Yawning Observation: 2= >3x During Session Anxiety or Irritability: 2=Irritable/Anxious Goose Flesh Skin: 0=Smooth Skin COWS Score: 12 S Progress Note (SOAP) Subjective: sweats shakes interrupted sleep body aches irritable agitation anxiety Objective: 11/06/18 09:52 Vital Signs Temperature 97.9 F 11/06/18 09:47 Pulse Rate 67 11/06/18 09:47 Respiratory Rate 16 11/06/18 09:47 Blood Pressure 112/69 11/06/18 09:47 O2 Sat by Pulse Oximetry (%) labs pending aaox3 ambulating no acute distress Assessment: 11/06/18 09:53 withdrawal sx Plan: continue detox increase fluids labs pending pt has not moved his bowels; will order kayexalate
[2018-11-06] MEDS ORDERED: SODIUM POLYSTYRENE SULFONATE 15 GM/60 ML BOTTLE PO ONE (09:56)
[2018-11-06] MEDS ORDERED: NICOTINE 21 MG/24 HOURS TOPICAL PATCH TD SCH (10:00)
[2018-11-06] MEDS ORDERED: METHADONE HCL 10 MG TABLET (FOR DETOX USE ONLY) PO SCH (10:00)
[2018-11-06] MEDS ORDERED: PRENATAL VITAMINS W/ FOLIC ACID TABLET (FP) PO SCH (10:00)
[2018-11-06] MEDS: PANTOPRAZOLE 20 MG TABLET (FP) PO SCH (10:21)
[2018-11-06] MEDS: TOLNAFTATE 1% POWDER 45 GM POW TP SCH (10:22)
[2018-11-06 10:53] LABS: HEMATOCRIT 45.9 % (35.4-49); HEMOGLOBIN 15.7 GM/dL (11.7-16.9); MCH 31.2 pg (25.7-33.7); MCHC 34.2 g/dl (32.0-35.9); MEAN CELL VOLUME 91.3 fl (80-96); MEAN PLT VOLUME 9.6 fl (7.5-11.1); PLATELET COUNT 216 K/MM3 (134-434); RBC 5.03 M/mm3 (4.00-5.60); WHITE BLOOD COUNT 7.9 K/mm3 (4.0-10.0)
[2018-11-06 11:13] LABS: ALBUMIN 3.4 g/dl (3.4-5.0); ALK PHOS 79 U/L (45-117); ANION GAP 9 MMOL/L (8-16); BILIRUBIN,TOTAL 0.3 mg/dL (0.2-1); BLOOD UREA NITROGEN 12 mg/dL (7-18); CALCIUM 8.6 mg/dL (8.5-10.1); CHLORIDE 106 mmol/L (98-107); CO2 26 mmol/L (21-32); CREATININE 0.8 mg/dL (0.55-1.3); GLUCOSE,RANDOM 79 mg/dL (74-106); POTASSIUM 3.8 mmol/L (3.5-5.1); SGOT/AST 26 U/L (15-37); SGPT/ALT 55 U/L (13-61); SODIUM 141 mmol/L (136-145); TOT PROT 6.4 g/dl (6.4-8.2)
--- NOTE | 2018-11-06 16:54 | CONSULT ---
[facility] Psychiatric Consult - Data Date of interview: 11/06/18 Admission source: [facility] Identifying data: Patient is a 33 year old single male, without children, unemployed, and is currently living with his girlfriend. This is one of multiple admissions for patient. Patient admitted to for marijuana, cocaine, benzodiazepine, and opiate dependence. Substance Abuse History: Smoking Cessation. Smoking history: Current every day smoker. Have you smoked in the past 12 months: Yes. Aproximately how many cigarettes per day: 20. Cigars Per Day: 0. Hx Chewing Tobacco Use: No. Initiated information on smoking cessation: Yes. 'Breaking Loose' booklet given : 11/05/18. - Substance & Tx. History. Hx Alcohol Use: Yes. Hx Substance Use : Yes. Substance Use Type: Alcohol, Cocaine, Heroin, Marijuana. Hx Substance Use Treatment: Yes (detox, rehab). - Substances Abused. Alprazolam (Xanax) . Route: Oral. Frequency: Daily. Amount used: 6mg. Age of first use: 26. Date of Last Use: 11/04/18. Heroin. Route: Injection. Frequency: Daily. Amount used: 25 bags. Age of first use: 26. Date of Last Use: 11/04/18. Alcohol. Route: Oral. Frequency: 3-6 times per week. Amount used: 1 fifth liquor. Age of first use: 13. Date of Last Use: 11/04/18 Medical History: left arm and leg fx when at 4 years of age, Hep C (unsure, conflicting results) Psychiatric History: Patient reports h/o multiple psychiatric hospitalizations at [facility], most recently seven months ago. He reports a history of depression. Patient has received outpatient treatment from Dr. Barba at the [facility] in which he was prescribed seroquel. He reports multiple admissions to detox/rehab settings most recently at [facility] in 2017. He was prescribed wellbutrin 150mg XL + trazodone 150mg HS. Mr. Wakler repots sub-optimal adherence to medications. Patient denies h/o suicide attempt. Physical/Sexual Abuse/Trauma History: denies. Mental Status Exam - Mental Status Exam Alert and Oriented to: Time, Place, Person Cognitive Function: Good Patient Appearance: Well Groomed Mood: Withdrawn Affect: Mood Congruent Patient Behavior: Guarded Speech Pattern: Delayed Voice Loudness: Moderately Soft/Quiet Thought Process: Goal Oriented Thought Disorder: Not Present Hallucinations: Denies Suicidal Ideation: Denies Homicidal Ideation: Denies Insight/Judgement: Poor Sleep: Poorly Appetite: Fair Muscle strength/Tone: Normal Gait/Station: Other (Did not observe patient's gait as patient was laying in bed.) Psychiatric Findings - Problem List ([place] 1, 2,3) (1) Substance induced mood disorder Current Visit: Yes Status: Acute (2) Alcohol dependence with uncomplicated withdrawal Current Visit: Yes Status: Acute (3) Opioid dependence with withdrawal Current Visit: Yes Status: Acute (4) Sedative, hypnotic or anxiolytic dependence with withdrawal, uncomplicated Current Visit: Yes Status: Acute (5) Cocaine dependence, uncomplicated Current Visit: Yes Status: Chronic (6) Nicotine dependence Current Visit: Yes Status: Chronic Qualifiers: Nicotine product type: cigarettes Substance use status: uncomplicated Qualified Code(s): F17.210 - Nicotine dependence, cigarettes, uncomplicated (7) Substance-induced sleep disorder Current Visit: Yes Status: Acute - Initial Treatment Plan Initial Treatment Plan: Psychoeducation provided. Detoxification in progress. Will order Wellbutrin 150mg XR + trazodone 50mg HS. Benefits and side effects discussed. Verbal consent given.
--- NOTE | 2018-11-06 17:00 | EKG ---
Test Reason : Blood Pressure : / mmHG Vent. Rate : 086 BPM Atrial Rate : 086 BPM P-R Int : 130 ms QRS Dur : 082 ms QT Int : 366 ms P-R-T Axes : 057 064 057 degrees QTc Int : 437 ms NORMAL SINUS RHYTHM NORMAL ECG WHEN COMPARED WITH ECG OF 09-JUN-2018 11:23, NO SIGNIFICANT CHANGE WAS FOUND Confirmed by MD BRAN MOYSES ([id number]) on 11/06/2018 5:00:20 PM Referred By: Confirmed By:FIDE BRAN MD
[2018-11-06 18:23] VITALS: BP 106/56; PULSE 69; TEMP 97.9
--- NOTE | 2018-11-06 18:57 | DS ---
[facility] Detox Discharge Summary Admission Date: 11/05/18 Discharge Date: 11/06/18 - History Present History: Opioid Dependence Additional Comments: Patient admitted for alcohol, benzo, and opiate withdrawal symptoms. Pertinent Past History: Nicotine use since age 13. Alcohol use since age 14. Cocaine use since age 15. Marijuana use since age 15. Benzodiazepine use since age 26. Heroin use since age 18. Current IVDU. Potassium serum level 5.8. (Done at [facility]) - Physical Exam Results Vital Signs: Vital Signs Temperature 97.9 F 11/06/18 18:21 Pulse Rate 69 11/06/18 18:21 Respiratory Rate 16 11/06/18 18:21 Blood Pressure 106/56 L 11/06/18 18:21 O2 Sat by Pulse Oximetry (%) Pertinent Admission Physical Exam Findings: Patient admitted with poly-substance use disorder and meeting requirements for detox. Elevated potassium level was treated with kayexelate. Laboratory Last Values WBC 7.9 K/mm3 (4.0-10.0) 11/06/18 07:00 RBC 5.03 M/mm3 (4.00-5.60) 11/06/18 07:00 Hgb 15.7 GM/dL (11.7-16.9) 11/06/18 07:00 Hct 45.9 % (35.4-49) 11/06/18 07:00 MCV 91.3 fl (80-96) 11/06/18 07:00 MCH 31.2 pg (25.7-33.7) 11/06/18 07:00 MCHC 34.2 g/dl (32.0-35.9) 11/06/18 07:00 RDW 14.0 % (11.9-15.9) D 11/06/18 07:00 Plt Count 216 K/MM3 (134-434) 11/06/18 07:00 MPV 9.6 fl (7.5-11.1) 11/06/18 07:00 Sodium 141 mmol/L (136-145) 11/06/18 07:00 Potassium 3.8 mmol/L (3.5-5.1) 11/06/18 07:00 Chloride 106 mmol/L (98-107) 11/06/18 07:00 Carbon Dioxide 26 mmol/L (21-32) 11/06/18 07:00 Anion Gap 9 MMOL/L (8-16) 11/06/18 07:00 BUN 12 mg/dL (7-18) 11/06/18 07:00 Creatinine 0.8 mg/dL (0.55-1.3) 11/06/18 07:00 Creat Clearance w eGFR > 60 (>60) 11/06/18 07:00 Random Glucose 79 mg/dL (74-106) 11/06/18 07:00 Calcium 8.6 mg/dL (8.5-10.1) 11/06/18 07:00 Total Bilirubin 0.3 mg/dL (0.2-1) 11/06/18 07:00 AST 26 U/L (15-37) 11/06/18 07:00 ALT 55 U/L (13-61) 11/06/18 07:00 Alkaline Phosphatase 79 U/L (45-117) 11/06/18 07:00 Total Protein 6.4 g/dl (6.4-8.2) 11/06/18 07:00 Albumin 3.4 g/dl (3.4-5.0) 11/06/18 07:00 RPR Titer Nonreactive (NONREACTIVE) 11/06/18 07:00 HIV 1&2 Antibody Screen Negative 11/06/18 07:00 HIV P24 Antigen Negative 11/06/18 07:00 Labs reviewed. - Treatment Hospital Course: Detox Protocol Followed (Detox protocol was followed but patient was nowhere near completing treatment. Patient left before provider saw patient, signing out AMA.), Discharged Condition Good (Patient was alert w/ steady gait upon discharge.) - Medication Discharge Medications: Ambulatory Orders Bupropion HCl [Wellbutrin Xl -] 300 mg PO DAILY 11/05/18 Trazodone HCl 150 mg PO HS 11/05/18 - Diagnosis (1) Hyperkalemia Status: Acute (2) Alcohol dependence with uncomplicated withdrawal Status: Acute (3) Cocaine dependence, uncomplicated Status: Chronic (4) Nicotine dependence Status: Chronic Qualifiers: Nicotine product type: cigarettes Substance use status: uncomplicated Qualified Code(s): F17.210 - Nicotine dependence, cigarettes, uncomplicated (5) Opioid dependence with withdrawal Status: Acute (6) Tinea pedis Status: Chronic Qualifiers: Laterality: bilateral Qualified Code(s): B35.3 - Tinea pedis (7) Nystagmus Status: Acute (8) Sedative, hypnotic or anxiolytic dependence with withdrawal, uncomplicated Status: Acute (9) Acid reflux Status: Chronic Qualifiers: Esophagitis presence: without esophagitis Qualified Code(s): K21.9 - Gastro -esophageal reflux disease without esophagitis - AMA Did Patient Leave Against Medical Advice: Yes (Patient refused to stay and complete detox and medical care)
[2018-11-07] MEDS ORDERED: METHADONE HCL 5 MG TABLET (FOR DETOX USE ONLY) PO SCH (10:00)
[2018-11-07] MEDS ORDERED: diazePAM 5 MG TABLET PO SCH (10:00)
[2018-11-09] MEDS ORDERED: METHADONE HCL 10 MG TABLET (FOR DETOX USE ONLY) PO SCH (10:00)
[2018-11-09] MEDS ORDERED: diazePAM 5 MG TABLET PO SCH (10:00)
[2018-11-10] MEDS ORDERED: METHADONE HCL 5 MG TABLET (FOR DETOX USE ONLY) PO SCH (06:00)
== END 2018-11-06 18:34 | disposition left against medical advice (07) | DRG 770 ==
LOC: YASAS 19:36 → Y6N 22:29
PROVIDERS: ADMIT Neuromusculoskeletal Medicine & OMM; ATTEND Neuromusculoskeletal Medicine & OMM
PROC: HZ2ZZZZ Detoxification Services for Substance Abuse Treatment (ICD-10-PCS; principal; 2018-11-05)
DX: F11.23 Opioid dependence with withdrawal (principal); F10.230 Alcohol dependence with withdrawal, uncomplicated; F14.20 Cocaine dependence, uncomplicated; F13.230 Sedative, hypnotic or anxiolytic dependence with withdrawal, uncomplicated; F17.210 Nicotine dependence, cigarettes, uncomplicated; F19.24 Other psychoactive substance dependence with psychoactive substance-induced mood disorder; F19.282 Other psychoactive substance dependence with psychoactive substance-induced sleep disorder; E87.5 Hyperkalemia; B35.3 Tinea pedis; H55.00 Unspecified nystagmus; K21.9 Gastro-esophageal reflux disease without esophagitis; R00.0 Tachycardia, unspecified; Z59.0 Homelessness
CPT/HCPCS: 36415; 80053; 85027; 86593; 87389; 93005; 93010

== ENCOUNTER 2018-12-01 10:26 | Inpatient (IN) | payer OTHER ==
[2018-12-01 10:45] VITALS: BMI 25.0
--- NOTE | 2018-12-01 11:48 | HP ---
COWS - Scale Resting Pulse: 1= CO 81-100 Sweatin= Chills/Flushing Restless Observation: 3= Extraneous Movement Pupil Size: 1= Pupils >than Normal Bone or Joint Aches: 2= Severe Diffuse Aches Runny Nose/ Eye Tearin= Runny Nose/Eyes GI Upset > 30mins: 3= Vomiting/Diarrhea Tremor Observation: 2= Slight Tremor Visible Yawning Observation: 1= 1-2x During Session Anxiety or Irritability: 2=Irritable/Anxious Goose Flesh Skin: 0=Smooth Skin COWS Score: 18 CIWA Score Nausea/Vomitin Muscle Tremors: 2 Anxiety: 2 Agitation: 2 Paroxysmal Sweats: 1-Minimal Palms Moist Orientation: 0-Oriented Tacttile Disturbances: 1-Very Mild Itch/Numbness Auditory Disturbances: 1-Very Mild Visual Disturbances: 0-None Headache: 2-Mild CIWA-Ar Total Score: 13 - Admission Criteria [facility]ASAS Guidelines: Admission for Medically Managed Detox: Requires at least one of the followin. CIWA greater than 12 2. Seizures within the past 24 hours 3. Delirium tremens within the past 24 hours 4. Hallucinations within the past 24 hours 5. Acute intervention needed for co occurring medical disorder 6. Acute intervention needed for co occurring psychiatric disorder 7. Severe withdrawal that cannot be handled at a lower level of care (continued vomiting, continued diarrhea, abnormal vital signs) requiring intravenous medication and/or fluids 8. Patient presents the following: CIWA greater than 12 Admission Criteria Met: Admission criteria met Admission ROS [facility] - [facility] Chief Complaint: i need to stop using heroin,cocaine,xanax Allergies/Adverse Reactions: Allergies Allergy/AdvReac Type Severity Reaction Status Date / Time divalproex sodium AdvReac Severe stiffness Verified 12/01/18 12:55 [From [facility]] History of Present Illness: this 33 years old male with heroin,xanax,cocaine dependence seeking detox, withdrawal symptom,last detox [facility] last week,not completed hepatitis c not treated nicotine dependence depression,anxiety,insomnia longest period of sobriety 2 years Exam Limitations: No Limitations - Ebola screening Have you traveled outside of the country in the last 21 days: No (N) Have you had contact with anyone from an Ebola affected area: No Have you been sick,other than usual withdrawal symptoms: No Do you have a fever: No - Review of Systems Constitutional: Chills, Loss of Appetite, Malaise, Night Sweats, Changes in sleep, Weakness, Unintentional Wgt. Loss EENT: reports: Tearing, Nose Congestion Respiratory: reports: No Symptoms reported Cardiac: reports: No Symptoms Reported GI: reports: Nausea, Poor Appetite, Vomiting, Abdominal cramping : reports: No Symptoms Reported Musculoskeletal: reports: Back Pain, Joint Pain, Muscle Pain, Joint Stiffness Integumentary: reports: Dryness Neuro: reports: Headache, Tremors Endocrine: reports: No Symptoms Reported Hematology: reports: No Symptoms Reported Psychiatric: reports: No Sypmtoms Reported, Judgement Intact, Mood/Affect Appropiate, Orientated x3, Agitated, Depressed, other Other Systems: Reviewed and Negative Patient History - Patient Medical History Hx Anemia: No Hx Asthma: No Hx Chronic Obstructive Pulmonary Disease (COPD): No Hx Cancer: No Hx Cardiac Disorders: No Hx Congestive Heart Failure: No Hx Hypertension: No Hx Hypercholesterolemia: No Hx Pacemaker: No HX Cerebrovascular Accident: No Hx Seizures: No Hx Dementia: No Hx Diabetes: No Hx Gastrointestinal Disorders: No Hx Liver Disease: No Hx Genitourinary Disorders: No Hx Sexually Transmitted Disorders: No Hx Renal Disease (ESRD): No Hx Thyroid Disease: No Hx Human Immunodeficiency Virus (HIV): No (LAST NEGATIVE 11/01) Hx Hepatitis C: Yes (not treated) Hx Depression: Yes (anxiety,insonia) Hx Suicide Attempt: No Hx Bipolar Disorder: No Hx Schizophrenia: No Other Medical History: no suicodal,no homicidal - Patient Surgical History Past Surgical History: No Hx Neurologic Surgery: No Hx Cataract Extraction: No Hx Cardiac Surgery: No Hx Lung Surgery: No Hx Breast Surgery: No Hx Breast Biopsy: No Hx Abdominal Surgery: No Hx Appendectomy: No Hx Cholecystectomy: No Hx Genitourinary Surgery: No Hx Section: No Hx Orthopedic Surgery: Yes (left arm and leg fx when a child AT AGE OF 54 YEARS OLD) Anesthesia Reaction: No - PPD History Previous Implant?: Yes Documented Results: Negative w/o proof Date: 11/07/18 Results: no reading - Smoking Cessation Smoking history: Current every day smoker Have you smoked in the past 12 months: Yes Aproximately how many cigarettes per day: 20 Cigars Per Day: 0 Hx Chewing Tobacco Use: No Initiated information on smoking cessation: Yes 'Breaking Loose' booklet given: 12/01/18 - Substance & Tx. History Hx Alcohol Use: No Hx Substance Use: Yes Substance Use Type: Cocaine, Heroin, Tranquilizers Hx Substance Use Treatment: Yes (miranda 11/24/18 not completed) - Substances Abused Heroin Route: Injection Frequency: Daily Amount used: 30 bags Age of first use: 26 Date of Last Use: 11/30/18 Cocaine Route: Injection Frequency: 3-6 times per week Amount used: 100$ Age of first use: 15 Date of Last Use: 11/29/18 Alprazolam (Xanax) Route: Oral Frequency: 3-6 times per week Amount used: 8 mgs Age of first use: 23 Date of Last Use: 11/25/18 Family Disease History - Family Disease History Family Disease History: Other: Father (living, healthy), Mother (living, healthy ), Sister (one - healthy) Admission Physical Exam BHS - Vital Signs Vital Signs: Vital Signs - 24 hr 12/01/18 10:44 Temperature 97.1 F L Pulse Rate 94 H Respiratory 18 Rate Blood Pressure 118/81 - Physical General Appearance: Yes: Moderate Distress, Tremorous, Irritable, Sweating, Anxious HEENTM: Yes: Normal ENT Inspection, NOAH, Pharynx Normal Respiratory: Yes: Lungs Clear, Normal Breath Sounds, No Respiratory Distress Neck: Yes: Within Normal Limits, Supple, Trachea in good position Breast: Yes: Within Normal Limits Cardiology: Yes: Within Normal Limits, Regular Rhythm, Regular Rate, S1, S2 Abdominal: Yes: Normal Bowel Sounds, Non Tender, Flat, Soft, Organomegaly Genitourinary: Yes: Within Normal Limits Back: Yes: Muscle Spasm Musculoskeletal: Yes: Back pain, Muscle Pain, Other (deformity of left elbow) Extremities: Yes: Tremors, Other (burn of righ tleg) Neurological: Yes: automobile drivers II-XII NML intact, Fully Oriented, Alert, Motor Strength 5/5 Integumentary: Yes: Dry, Track Denise Lymphatic: Yes: Within Normal Limits - Diagnostic (1) Opioid dependence with withdrawal Current Visit: Yes Status: Acute (2) Opioid dependence with withdrawal Current Visit: No Status: Acute (3) Bipolar I disorder with mixed features Current Visit: No Status: Acute (4) Sedative, hypnotic or anxiolytic dependence with withdrawal, uncomplicated Current Visit: Yes Status: Acute (5) Cocaine dependence, uncomplicated Current Visit: Yes Status: Chronic (6) Nicotine dependence Current Visit: Yes Status: Chronic Qualifiers: Nicotine product type: cigarettes Substance use status: uncomplicated Qualified Code(s): F17.210 - Nicotine dependence, cigarettes, uncomplicated (7) Tinea pedis Current Visit: No Status: Chronic Qualifiers: Laterality: bilateral Qualified Code(s): B35.3 - Tinea pedis (8) Hepatitis C Current Visit: No Status: Suspected Qualifiers: Viral hepatitis chronicity: unspecified Hepatic coma status: without hepatic coma Qualified Code(s): B19.20 - Unspecified viral hepatitis C without hepatic coma Comment: uncertain - states he has received conflicting results (9) IVDU (intravenous drug user) Current Visit: Yes Status: Acute Cleared for Admission [facility] - Detox or Rehab [facility] Level of Care: Medically Managed Detox Regimen/Protocol: Methadone [facility] Breath Alcohol Content Breath Alcohol Content: 0 Urine Drug Screen - Results Drug Screen Negative: No Urine Drug Screen Results: PASQUALE-Cocaine, OPI-Opiates, MTD-Methadone, FEN-Fentanyl Inpatient Rehab Admission - Rehab Decision to Admit Inpatient rehab admission?: No
[2018-12-01] MEDS ORDERED: MENTHOL/PHENOL 1 EACH UD MM PRN (12:16)
[2018-12-01] MEDS ORDERED: P-EPHED 60MG/TRIPROLIDI 2.5MG TABLET PO PRN (12:16)
[2018-12-01] MEDS ORDERED: LOPERAMIDE HCL 2 MG CAPSULE PO PRN (12:16)
[2018-12-01] MEDS ORDERED: IBUPROFEN 400 MG TABLET (FP) PO PRN (12:16)
[2018-12-01] MEDS ORDERED: hydrOXYzine PAMOATE 50 MG CAPSULE (FP) PO PRN (12:16)
[2018-12-01] MEDS ORDERED: ACETAMINOPHEN 325 MG TABLET (FP) PO PRN (12:16)
[2018-12-01] MEDS ORDERED: MAGNESIUM HYDROX 2400MG/30ML ORAL SUSPENSION 30 ML CUP PO PRN (12:16)
[2018-12-01] MEDS ORDERED: NICOTINE POLACRILEX 2 MG GUM BUC PRN (12:16)
[2018-12-01] MEDS ORDERED: MAGNESIUM CITRATE 300 ML BOTTLE PO PRN (12:16)
[2018-12-01] MEDS ORDERED: MAG HYDROX/AL HYDROX/SIMETH 30 ML UNIT-DOSE CUP PO PRN (12:16)
[2018-12-01] MEDS ORDERED: guaiFENesin/D-METHORPHAN HB 10 ML UNIT-DOSE CUPS PO PRN (12:16)
[2018-12-01] MEDS ORDERED: CYCLOBENZAPRINE HCL 10 MG TABLET (FP) PO PRN (12:19)
[2018-12-01] MEDS ORDERED: METHADONE HCL 10 MG TABLET (FOR DETOX USE ONLY) PO ONE ×2 (13:30→23:00)
[2018-12-01] MEDS: NICOTINE 21 MG/24 HOURS TOPICAL PATCH TD SCH (13:38)
[2018-12-01] MEDS: cloNIDine HCL 0.1 MG TABLET PO SCH ×2 (13:38→22:06)
[2018-12-01] MEDS: diazePAM 5 MG TABLET PO PRN ×2 (15:41→19:55)
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
[2018-12-01] MEDS ORDERED: MELATONIN 5 MG TABLETS PO PRN (22:00)
[2018-12-01] MEDS: MIRTAZAPINE 15 MG TABLET (FP) PO SCH (22:06)
[2018-12-01] MEDS: TOLNAFTATE 1% CREAM 15 GM TUBE TP SCH (22:07)
[2018-12-01] MEDS: THIAMINE HCL 100 MG TABLET (FP) PO SCH (22:07)
[2018-12-02] MEDS ORDERED: METHADONE HCL 10 MG TABLET (FOR DETOX USE ONLY) PO ONE (10:00)
[2018-12-02] MEDS: PRENATAL VITAMINS W/ FOLIC ACID TABLET (FP) PO SCH (10:14)
[2018-12-02] MEDS: diazePAM 5 MG TABLET PO PRN ×2 (10:14→22:14)
[2018-12-02] MEDS: cloNIDine HCL 0.1 MG TABLET PO SCH ×2 (10:15→22:13)
[2018-12-02] MEDS: NICOTINE 21 MG/24 HOURS TOPICAL PATCH TD SCH (10:16)
[2018-12-02 10:36] LABS: HEMOGLOBIN 14.6 GM/dL (11.7-16.9); MCH 31.9 pg (25.7-33.7); MCHC 34.7 g/dl (32.0-35.9); MEAN CELL VOLUME 91.9 fl (80-96); MEAN PLT VOLUME 9.6 fl (7.5-11.1); PLATELET COUNT 159 K/MM3 (134-434); RBC 4.57 M/mm3 (4.00-5.60); RDW 14.4 % (11.9-15.9); WHITE BLOOD COUNT 6.8 K/mm3 (4.0-10.0)
[2018-12-02 10:58] LABS: ALBUMIN 3.2 g/dl (3.4-5.0); ALK PHOS 87 U/L (45-117); ANION GAP 6 MMOL/L (8-16); BILIRUBIN,TOTAL 0.2 mg/dL (0.2-1); BLOOD UREA NITROGEN 17 mg/dL (7-18); CHLORIDE 106 mmol/L (98-107); CO2 30 mmol/L (21-32); CREATININE 0.7 mg/dL (0.55-1.3); GLUCOSE,RANDOM 93 mg/dL (74-106); POTASSIUM 3.6 mmol/L (3.5-5.1); SGOT/AST 21 U/L (15-37); SGPT/ALT 36 U/L (13-61); SODIUM 142 mmol/L (136-145); TOT PROT 5.7 g/dl (6.4-8.2)
[2018-12-02] MEDS: TOLNAFTATE 1% CREAM 15 GM TUBE TP SCH ×2 (11:21→22:13)
--- NOTE | 2018-12-02 15:21 | PN ---
BHS COWS - Scale Resting Pulse: 1= ME 81-100 Sweatin= Chills/Flushing Restless Observation: 1= Difficult to Sit Still Pupil Size: 1= Pupils >than Normal Bone or Joint Aches: 1= Mild Discomfort Runny Nose/ Eye Tearin= Nasal Congestion GI Upset > 30mins: 1= Stomach Cramp Tremor Observation of Outstretched Hands: 2= Slight Tremor Visible Yawning Observation: 2= >3x During Session Anxiety or Irritability: 2=Irritable/Anxious Goose Flesh Skin: 0=Smooth Skin COWS Score: 13 BHS Progress Note (SOAP) Subjective: body aches tremor joints pain iching feet Objective: 12/02/18 15:23 Vital Signs Temperature 96.1 F L 12/02/18 13:25 Pulse Rate 72 12/02/18 13:25 Respiratory Rate 18 12/02/18 13:25 Blood Pressure 100/62 12/02/18 13:25 O2 Sat by Pulse Oximetry (%) Laboratory Last Values WBC 6.8 K/mm3 (4.0-10.0) 12/02/18 07:50 RBC 4.57 M/mm3 (4.00-5.60) 12/02/18 07:50 Hgb 14.6 GM/dL (11.7-16.9) 12/02/18 07:50 Hct 42.0 % (35.4-49) 12/02/18 07:50 MCV 91.9 fl (80-96) 12/02/18 07:50 MCH 31.9 pg (25.7-33.7) 12/02/18 07:50 MCHC 34.7 g/dl (32.0-35.9) 12/02/18 07:50 RDW 14.4 % (11.9-15.9) 12/02/18 07:50 Plt Count 159 K/MM3 (134-434) D 12/02/18 07:50 MPV 9.6 fl (7.5-11.1) 12/02/18 07:50 Sodium 142 mmol/L (136-145) 12/02/18 07:50 Potassium 3.6 mmol/L (3.5-5.1) 12/02/18 07:50 Chloride 106 mmol/L (98-107) 12/02/18 07:50 Carbon Dioxide 30 mmol/L (21-32) 12/02/18 07:50 Anion Gap 6 MMOL/L (8-16) L 12/02/18 07:50 BUN 17 mg/dL (7-18) 12/02/18 07:50 Creatinine 0.7 mg/dL (0.55-1.3) 12/02/18 07:50 Creat Clearance w eGFR > 60 (>60) 12/02/18 07:50 Random Glucose 93 mg/dL (74-106) 12/02/18 07:50 Calcium 8.0 mg/dL (8.5-10.1) L 12/02/18 07:50 Total Bilirubin 0.2 mg/dL (0.2-1) 12/02/18 07:50 AST 21 U/L (15-37) 12/02/18 07:50 ALT 36 U/L (13-61) 12/02/18 07:50 Alkaline Phosphatase 87 U/L (45-117) 12/02/18 07:50 Total Protein 5.7 g/dl (6.4-8.2) L 12/02/18 07:50 Albumin 3.2 g/dl (3.4-5.0) L 12/02/18 07:50 RPR Titer Nonreactive (NONREACTIVE) 12/02/18 07:50 lab noted low Ca++ Assessment: 12/02/18 15:23 withdrawal sx Tinea corporis 12/02/18 15:25 Plan: continue detox itraconezole 400 mg po daily x 7 days patient acknowledged the interacdtion between fungal oral treatment and methadone
[2018-12-02] MEDS: CALCIUM 250MG/VIT-D 125 UNITS 1 COMBO TABLET PO SCH (16:05)
[2018-12-02] MEDS: ITRACONAZOLE 100 MG CAPSULE PO SCH (22:12)
[2018-12-02] MEDS: THIAMINE HCL 100 MG TABLET (FP) PO SCH (22:13)
[2018-12-02] MEDS: MIRTAZAPINE 15 MG TABLET (FP) PO SCH (22:13)
--- NOTE | 2018-12-03 09:30 | PN ---
BHS COWS - Scale Resting Pulse: 0= ID 80 or Below Sweatin= Chills/Flushing Restless Observation: 1= Difficult to Sit Still Pupil Size: 1= Pupils >than Normal Bone or Joint Aches: 1= Mild Discomfort Runny Nose/ Eye Tearin= Nasal Congestion GI Upset > 30mins: 1= Stomach Cramp Tremor Observation of Outstretched Hands: 1= Tremor [place], Not Seen Yawning Observation: 1= 1-2x During Session Anxiety or Irritability: 2=Irritable/Anxious Goose Flesh Skin: 0=Smooth Skin COWS Score: 10 BHS Progress Note (SOAP) Subjective: anxiety trouble sleep through the night body aches restlessness tremor Objective: 12/03/18 09:31 Vital Signs Temperature 97.0 F L 12/03/18 09:09 Pulse Rate 57 L 12/03/18 09:09 Respiratory Rate 18 12/03/18 09:09 Blood Pressure 100/65 12/03/18 09:09 O2 Sat by Pulse Oximetry (%) Laboratory Last Values WBC 6.8 K/mm3 (4.0-10.0) 12/02/18 07:50 RBC 4.57 M/mm3 (4.00-5.60) 12/02/18 07:50 Hgb 14.6 GM/dL (11.7-16.9) 12/02/18 07:50 Hct 42.0 % (35.4-49) 12/02/18 07:50 MCV 91.9 fl (80-96) 12/02/18 07:50 MCH 31.9 pg (25.7-33.7) 12/02/18 07:50 MCHC 34.7 g/dl (32.0-35.9) 12/02/18 07:50 RDW 14.4 % (11.9-15.9) 12/02/18 07:50 Plt Count 159 K/MM3 (134-434) D 12/02/18 07:50 MPV 9.6 fl (7.5-11.1) 12/02/18 07:50 Sodium 142 mmol/L (136-145) 12/02/18 07:50 Potassium 3.6 mmol/L (3.5-5.1) 12/02/18 07:50 Chloride 106 mmol/L (98-107) 12/02/18 07:50 Carbon Dioxide 30 mmol/L (21-32) 12/02/18 07:50 Anion Gap 6 MMOL/L (8-16) L 12/02/18 07:50 BUN 17 mg/dL (7-18) 12/02/18 07:50 Creatinine 0.7 mg/dL (0.55-1.3) 12/02/18 07:50 Creat Clearance w eGFR > 60 (>60) 12/02/18 07:50 Random Glucose 93 mg/dL (74-106) 12/02/18 07:50 Calcium 8.0 mg/dL (8.5-10.1) L 12/02/18 07:50 Total Bilirubin 0.2 mg/dL (0.2-1) 12/02/18 07:50 AST 21 U/L (15-37) 12/02/18 07:50 ALT 36 U/L (13-61) 12/02/18 07:50 Alkaline Phosphatase 87 U/L (45-117) 12/02/18 07:50 Total Protein 5.7 g/dl (6.4-8.2) L 12/02/18 07:50 Albumin 3.2 g/dl (3.4-5.0) L 12/02/18 07:50 RPR Titer Nonreactive (NONREACTIVE) 12/02/18 07:50 lab noted 12/03/18 09:31 low Ca++ continue oscal supplement Assessment: 12/03/18 09:31 opiate withdrawal sx Plan: continue detox
[2018-12-03] MEDS ORDERED: METHADONE HCL 5 MG TABLET (FOR DETOX USE ONLY) PO ONE (10:00)
[2018-12-03] MEDS: diazePAM 5 MG TABLET PO PRN (10:53)
[2018-12-03] MEDS: TOLNAFTATE 1% CREAM 15 GM TUBE TP SCH (10:54)
[2018-12-03] MEDS: NICOTINE 21 MG/24 HOURS TOPICAL PATCH TD SCH (10:54)
[2018-12-03] MEDS: cloNIDine HCL 0.1 MG TABLET PO SCH (10:55)
[2018-12-03] MEDS: PRENATAL VITAMINS W/ FOLIC ACID TABLET (FP) PO SCH (10:55)
[2018-12-03] MEDS: CALCIUM 250MG/VIT-D 125 UNITS 1 COMBO TABLET PO SCH (10:55)
[2018-12-03] MEDS: ITRACONAZOLE 100 MG CAPSULE PO SCH (10:55)
[2018-12-03 13:32] VITALS: BP 101/69; PULSE 60; TEMP 97.1
--- NOTE | 2018-12-03 15:51 | DS ---
[facility] Detox Discharge Summary Admission Date: 12/01/18 Discharge Date: 12/03/18 - History Present History: Opioid Dependence, Sedative Dependence Additional Comments: 33 years old male admitted on 12/01/18 for benzo and opiate withdrawal stabilization patient smoking cigarette in his room patient refuses to contract for safety to maintain therapeutic environment no smoking allow patient insists to leave the detox unit today strong recommend to clam picker narcan from the pharmacy Pertinent Past History: patient is alert no acute distress no suicidal ideation encourage medication assisted treatment program and clam picker narcan from the pharmacy - Physical Exam Results Vital Signs: Vital Signs Temperature 97.1 F L 12/03/18 13:31 Pulse Rate 60 12/03/18 13:31 Respiratory Rate 18 12/03/18 13:31 Blood Pressure 101/69 12/03/18 13:31 O2 Sat by Pulse Oximetry (%) Pertinent Admission Physical Exam Findings: benzo and opiate withdrawal sx Laboratory Last Values WBC 6.8 K/mm3 (4.0-10.0) 12/02/18 07:50 RBC 4.57 M/mm3 (4.00-5.60) 12/02/18 07:50 Hgb 14.6 GM/dL (11.7-16.9) 12/02/18 07:50 Hct 42.0 % (35.4-49) 12/02/18 07:50 MCV 91.9 fl (80-96) 12/02/18 07:50 MCH 31.9 pg (25.7-33.7) 12/02/18 07:50 MCHC 34.7 g/dl (32.0-35.9) 12/02/18 07:50 RDW 14.4 % (11.9-15.9) 12/02/18 07:50 Plt Count 159 K/MM3 (134-434) D 12/02/18 07:50 MPV 9.6 fl (7.5-11.1) 12/02/18 07:50 Sodium 142 mmol/L (136-145) 12/02/18 07:50 Potassium 3.6 mmol/L (3.5-5.1) 12/02/18 07:50 Chloride 106 mmol/L (98-107) 12/02/18 07:50 Carbon Dioxide 30 mmol/L (21-32) 12/02/18 07:50 Anion Gap 6 MMOL/L (8-16) L 12/02/18 07:50 BUN 17 mg/dL (7-18) 12/02/18 07:50 Creatinine 0.7 mg/dL (0.55-1.3) 12/02/18 07:50 Creat Clearance w eGFR > 60 (>60) 12/02/18 07:50 Random Glucose 93 mg/dL (74-106) 12/02/18 07:50 Calcium 8.0 mg/dL (8.5-10.1) L 12/02/18 07:50 Total Bilirubin 0.2 mg/dL (0.2-1) 12/02/18 07:50 AST 21 U/L (15-37) 12/02/18 07:50 ALT 36 U/L (13-61) 12/02/18 07:50 Alkaline Phosphatase 87 U/L (45-117) 12/02/18 07:50 Total Protein 5.7 g/dl (6.4-8.2) L 12/02/18 07:50 Albumin 3.2 g/dl (3.4-5.0) L 12/02/18 07:50 RPR Titer Nonreactive (NONREACTIVE) 12/02/18 07:50 lab noted calcium rich food - Treatment Hospital Course: Detox Protocol Followed, Responded well Patient has Accepted a Rehab Referral to: 12 step community self help meeting - Medication Discharge Medications: Ambulatory Orders Bupropion HCl [Wellbutrin Xl -] 300 mg PO DAILY 11/05/18 Trazodone HCl 150 mg PO HS 11/05/18 Itraconazole [Sporanox -] 400 mg PO DAILY 12/02/18 Naloxone HCl [Narcan] 4 mg NS ASDIR PRN 12/03/18 - Diagnosis (1) Opioid dependence with withdrawal Status: Acute (2) Sedative, hypnotic or anxiolytic dependence with withdrawal, uncomplicated Status: Acute (3) Nicotine dependence Status: Acute Qualifiers: Nicotine product type: cigarettes Substance use status: in withdrawal Qualified Code(s): F17.213 - Nicotine dependence, cigarettes, with withdrawal (4) Substance induced mood disorder Status: Suspected (5) Hepatitis C Status: Chronic Qualifiers: Viral hepatitis chronicity: unspecified Hepatic coma status: without hepatic coma Qualified Code(s): B19.20 - Unspecified viral hepatitis C without hepatic coma - AMA Did Patient Leave Against Medical Advice: Yes
[2018-12-04] MEDS ORDERED: METHADONE HCL 5 MG TABLET (FOR DETOX USE ONLY) PO ONE (10:00)
[2018-12-05] MEDS ORDERED: METHADONE HCL 10 MG TABLET (FOR DETOX USE ONLY) PO ONE (10:00)
[2018-12-06] MEDS ORDERED: METHADONE HCL 5 MG TABLET (FOR DETOX USE ONLY) PO ONE (06:00)
== END 2018-12-03 15:20 | disposition left against medical advice (07) | DRG 770 ==
LOC: YASAS 10:26 → Y3N 12:52
PROVIDERS: ADMIT Surgery; ATTEND Surgery
PROC: HZ2ZZZZ Detoxification Services for Substance Abuse Treatment (ICD-10-PCS; principal; 2018-12-01)
DX: F11.23 Opioid dependence with withdrawal (principal); F13.230 Sedative, hypnotic or anxiolytic dependence with withdrawal, uncomplicated; F14.20 Cocaine dependence, uncomplicated; F17.213 Nicotine dependence, cigarettes, with withdrawal; F19.24 Other psychoactive substance dependence with psychoactive substance-induced mood disorder; F31.60 Bipolar disorder, current episode mixed, unspecified; B19.20 Unspecified viral hepatitis C without hepatic coma; B35.4 Tinea corporis; B35.3 Tinea pedis; G47.00 Insomnia, unspecified; Z59.0 Homelessness
CPT/HCPCS: 36415; 80053; 85027; 86593; J0735

== ENCOUNTER 2019-02-04 20:05 | Inpatient (IN) | payer OTHER ==
[2019-02-05 00:06] VITALS: BMI 24.4
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
[2019-02-05] MEDS ORDERED: clonazePAM 0.5 MG TABLET PO PRN (01:45)
[2019-02-05] MEDS ORDERED: guaiFENesin 200 MG/10 ML 10 ML UNIT-DOSE CUPS PO PRN (01:45)
[2019-02-05] MEDS ORDERED: BISMUTH SUBSALICYLATE 524 MG/30 ML UD PO PRN (01:45)
[2019-02-05] MEDS ORDERED: METHOCARBAMOL 500 MG TABLET PO PRN (01:45)
[2019-02-05] MEDS ORDERED: cloNIDine HCL 0.1 MG TABLET PO PRN (01:45)
[2019-02-05] MEDS ORDERED: MAGNESIUM CITRATE 300 ML BOTTLE PO PRN (01:45)
[2019-02-05] MEDS ORDERED: MENTHOL/PHENOL 1 EACH UD MM PRN (01:45)
[2019-02-05] MEDS ORDERED: MELATONIN 5 MG TABLETS PO PRN (01:45)
[2019-02-05] MEDS ORDERED: IBUPROFEN 400 MG TABLET (FP) PO PRN (01:45)
[2019-02-05] MEDS ORDERED: NALOXONE HCL 0.4 MG/ML VIAL IVPUSH PRN (01:45)
[2019-02-05] MEDS ORDERED: MAGNESIUM HYDROX 2400MG/30ML ORAL SUSPENSION 30 ML CUP PO PRN (01:45)
[2019-02-05] MEDS ORDERED: NICOTINE POLACRILEX 2 MG GUM BUC PRN (01:45)
[2019-02-05] MEDS ORDERED: ACETAMINOPHEN 325 MG TABLET (FP) PO PRN ×2 (01:45)
[2019-02-05] MEDS ORDERED: MAG HYDROX/AL HYDROX/SIMETH 30 ML UNIT-DOSE CUP PO PRN (01:45)
[2019-02-05] MEDS ORDERED: traZODone HCL 100 MG TABLET (FP) PO ONE (01:52)
[2019-02-05] MEDS ORDERED: GABAPENTIN 300 MG CAPSULE (FP) PO PRN (01:54)
[2019-02-05] MEDS ORDERED: METHADONE HCL 10 MG TABLET (FOR DETOX USE ONLY) PO ONE ×2 (01:55→10:00)
[2019-02-05] MEDS: PRENATAL VITAMINS W/ FOLIC ACID TABLET (FP) PO SCH (10:23)
[2019-02-05] MEDS: PANTOPRAZOLE 40 MG TABLET (FP) PO SCH (10:23)
[2019-02-05] MEDS: NICOTINE 21 MG/24 HOURS TOPICAL PATCH TD SCH (10:24)
[2019-02-05] MEDS: TOLNAFTATE 1% CREAM 15 GM TUBE TP SCH ×2 (10:58→22:21)
[2019-02-05] MEDS: ITRACONAZOLE 100 MG CAPSULE PO SCH (10:59)
--- NOTE | 2019-02-05 13:06 | CONSULT ---
[facility] Psychiatric Consult - Data Date of interview: 02/05/19 Admission source: [facility] Identifying data: Approached for interview. Patient declines.
--- NOTE | 2019-02-05 16:16 | PN ---
BHS COWS - Scale Resting Pulse: 1= [place] 81-100 Sweatin= Chills/Flushing Restless Observation: 0= Sits Still Pupil Size: 0= Normal to Room Light Bone or Joint Aches: 0= None Runny Nose/ Eye Tearin= Runny Nose/Eyes GI Upset > 30mins: 1= Stomach Cramp Tremor Observation of Outstretched Hands: 2= Slight Tremor Visible Yawning Observation: 1= 1-2x During Session Anxiety or Irritability: 2=Irritable/Anxious Goose Flesh Skin: 3=Piloerection COWS Score: 13 BHS Progress Note (SOAP) Subjective: Tremors, Stomach Cramping, Runny Nose, Sweating. Objective: PATIENT A & O X 2 (UNCERTAIN ABOUT CURRENT DAY / DATE). PATIENT OBSERVED AMBULATING ON UNIT UNASSISTED. IN NO ACUTE DISTRESS. 02/05/19 16:19 Vital Signs Temperature 97 F L 02/05/19 13:11 Pulse Rate 75 02/05/19 13:11 Respiratory Rate 18 02/05/19 13:11 Blood Pressure 115/80 02/05/19 13:11 O2 Sat by Pulse Oximetry (%) ADMISSION LABS RESULTS PENDING. 02/05/19 16:20 Assessment: 02/05/19 16:20 WITHDRAWAL SYMPTOMS. Plan: CONTINUE DETOX.
[2019-02-05] MEDS ORDERED: THIAMINE HCL 100 MG TABLET (FP) PO SCH (22:00)
[2019-02-06] MEDS ORDERED: METHADONE HCL 10 MG TABLET (FOR DETOX USE ONLY) PO ONE (10:00)
[2019-02-06] MEDS: NICOTINE 21 MG/24 HOURS TOPICAL PATCH TD SCH (10:24)
[2019-02-06] MEDS: PANTOPRAZOLE 40 MG TABLET (FP) PO SCH (10:25)
[2019-02-06] MEDS: ITRACONAZOLE 100 MG CAPSULE PO SCH (10:25)
[2019-02-06] MEDS: PRENATAL VITAMINS W/ FOLIC ACID TABLET (FP) PO SCH (10:25)
[2019-02-06] MEDS: TOLNAFTATE 1% CREAM 15 GM TUBE TP SCH (11:01)
[2019-02-06 12:07] LABS: HEMATOCRIT 45.1 % (35.4-49); HEMOGLOBIN 15.3 GM/dL (11.7-16.9); MCH 31.2 pg (25.7-33.7); MCHC 33.9 g/dl (32.0-35.9); MEAN PLT VOLUME 9.7 fl (7.5-11.1); PLATELET COUNT 171 K/MM3 (134-434); RBC 4.91 M/mm3 (4.00-5.60); RDW 14.8 % (11.9-15.9); WHITE BLOOD COUNT 6.3 K/mm3 (4.0-10.0)
[2019-02-06 12:23] LABS: ALBUMIN 0.6 g/dl (3.4-5.0); ALK PHOS 82 U/L (45-117); ANION GAP 22 MMOL/L (8-16); BILIRUBIN,TOTAL 0.3 mg/dL (0.2-1); BLOOD UREA NITROGEN 6 mg/dL (7-18); CHLORIDE 106 mmol/L (98-107); CO2 13 mmol/L (21-32); CREATININE 0.8 mg/dL (0.55-1.3); POTASSIUM 3.9 mmol/L (3.5-5.1); SGOT/AST 26 U/L (15-37); SGPT/ALT 53 U/L (13-61); SODIUM 141 mmol/L (136-145); TOT PROT 6.3 g/dl (6.4-8.2)
--- NOTE | 2019-02-06 12:47 | PN ---
BHS COWS - Scale Resting Pulse: 1= [place] 81-100 Sweatin= Chills/Flushing Restless Observation: 1= Difficult to Sit Still Pupil Size: 1= Pupils >than Normal Bone or Joint Aches: 1= Mild Discomfort Runny Nose/ Eye Tearin= Nasal Congestion GI Upset > 30mins: 1= Stomach Cramp Tremor Observation of Outstretched Hands: 1= Tremor Parnell, Not Seen Yawning Observation: 0= None Anxiety or Irritability: 1=Feels Anxious/Irritable Goose Flesh Skin: 0=Smooth Skin COWS Score: 9 BHS Progress Note (SOAP) Subjective: pt states doing well, plans on getting on vivitrol for treatment after d/c O: Vital Signs - 24 hr 02/05/19 02/05/19 02/05/19 13:11 18:00 22:00 Temperature 97 F L 97.9 F 98.2 F Pulse Rate 75 84 80 Respiratory 18 18 17 Rate Blood Pressure 115/80 107/72 116/67 02/06/19 02/06/19 02/06/19 00:30 03:30 06:30 Temperature Pulse Rate Respiratory 18 18 18 Rate Blood Pressure 02/06/19 02/06/19 06:40 09:32 Temperature 97.7 F 96.7 F L Pulse Rate 56 L 78 Respiratory 18 18 Rate Blood Pressure 111/69 129/82 Laboratory Tests 02/06/19 02/06/19 07:30 07:30 WBC 6.3 RBC 4.91 Hgb 15.3 Hct 45.1 MCV 92.0 MCH 31.2 MCHC 33.9 RDW 14.8 Plt Count 171 MPV 9.7 Sodium 141 Potassium 3.9 Chloride 106 Carbon Dioxide 13 L Anion Gap 22 H BUN 6 L Creatinine 0.8 Creat Clearance w eGFR 110.66 Total Bilirubin 0.3 AST 26 ALT 53 Alkaline Phosphatase 82 Total Protein 6.3 L Albumin 0.6 L low albumin/protein/BUN- a/p: continue heroin detox protocol pt to discuss with counselor re discharge plans for vivitrol based treatment
[2019-02-06 12:49] LABS: CALCIUM 8.9 mg/dL (8.5-10.1); GLUCOSE,RANDOM 78 mg/dL (74-106)
[2019-02-06 18:23] VITALS: BP 106/70; PULSE 70; TEMP 98.7
--- NOTE | 2019-02-06 18:41 | DS ---
[facility] Detox Discharge Summary Admission Date: 02/05/19 Discharge Date: 02/06/19 - History Present History: Alcohol Dependence, Cannabis Dependence, Cocaine Dependence, Opioid Dependence, Sedative Dependence Additional Comments: Admitted with heroin adn alcohol withdrawal requesting detox. Pertinent Past History: Alcohol use disorder. Cocaine use disorder. Marijuana use disorder. Benzodiazepine disorder. Heroin use disorder - IVDU. Hx multiple overdoses. Nicotine use disorder. Hx: Hepatits C - Physical Exam Results Vital Signs: Vital Signs Temperature 98.7 F 02/06/19 18:00 Pulse Rate 70 02/06/19 18:00 Respiratory Rate 18 02/06/19 18:00 Blood Pressure 106/70 02/06/19 18:00 O2 Sat by Pulse Oximetry (%) Pertinent Admission Physical Exam Findings: Admitted with symptoms anxiolytic and opioid withdrawal for supportive detox. Co-occurring alcohol, cocaine and marijuana use disorder. Laboratory Last Values WBC 6.3 K/mm3 (4.0-10.0) 02/06/19 07:30 RBC 4.91 M/mm3 (4.00-5.60) 02/06/19 07:30 Hgb 15.3 GM/dL (11.7-16.9) 02/06/19 07:30 Hct 45.1 % (35.4-49) 02/06/19 07:30 MCV 92.0 fl (80-96) 02/06/19 07:30 MCH 31.2 pg (25.7-33.7) 02/06/19 07:30 MCHC 33.9 g/dl (32.0-35.9) 02/06/19 07:30 RDW 14.8 % (11.9-15.9) 02/06/19 07:30 Plt Count 171 K/MM3 (134-434) 02/06/19 07:30 MPV 9.7 fl (7.5-11.1) 02/06/19 07:30 Sodium 141 mmol/L (136-145) 02/06/19 07:30 Potassium 3.9 mmol/L (3.5-5.1) 02/06/19 07:30 Chloride 106 mmol/L (98-107) 02/06/19 07:30 Carbon Dioxide 13 mmol/L (21-32) L 02/06/19 07:30 Anion Gap 22 MMOL/L (8-16) H 02/06/19 07:30 BUN 6 mg/dL (7-18) L 02/06/19 07:30 Creatinine 0.8 mg/dL (0.55-1.3) 02/06/19 07:30 Creat Clearance w eGFR 110.66 (>60) 02/06/19 07:30 Random Glucose 78 mg/dL (74-106) 02/06/19 07:30 Calcium 8.9 mg/dL (8.5-10.1) 02/06/19 07:30 Total Bilirubin 0.3 mg/dL (0.2-1) 02/06/19 07:30 AST 26 U/L (15-37) 02/06/19 07:30 ALT 53 U/L (13-61) 02/06/19 07:30 Alkaline Phosphatase 82 U/L (45-117) 02/06/19 07:30 Total Protein 6.3 g/dl (6.4-8.2) L 02/06/19 07:30 Albumin 0.6 g/dl (3.4-5.0) L 02/06/19 07:30 Labs reviewed. Patient alert and oriented. States having difficulty being in hospitalized environment. Insists on leaving AMA despite encouragement. Encouraged patient to consider out-patient medication assisted treatment, but declined. Patient states has a Naran Kit at home and someone who knows how to use it. - Treatment Hospital Course: Detox Protocol Followed (Patient did not complete detox protocol.) - Medication Discharge Medications: Ambulatory Orders Bupropion HCl [Wellbutrin Xl -] 300 mg PO DAILY 11/05/18 Trazodone HCl 150 mg PO HS 11/05/18 Itraconazole [Sporanox -] 400 mg PO DAILY 12/02/18 Gabapentin 800 mg PO TID 02/05/19 Pantoprazole Sodium [Protonix -] 40 mg PO DAILY 02/05/19 - Diagnosis (1) IVDU (intravenous drug user) Current Visit: Yes Status: Chronic (2) Nicotine dependence Current Visit: Yes Status: Chronic Qualifiers: Nicotine product type: cigarettes Substance use status: in withdrawal Qualified Code(s): F17.213 - Nicotine dependence, cigarettes, with withdrawal (3) Nystagmus Current Visit: Yes Status: Chronic (4) Opioid dependence with withdrawal Current Visit: Yes Status: Acute (5) Sedative, hypnotic or anxiolytic dependence with withdrawal, uncomplicated Current Visit: Yes Status: Acute (6) Acid reflux Current Visit: Yes Status: Chronic Qualifiers: Esophagitis presence: without esophagitis Qualified Code(s): K21.9 - Gastro -esophageal reflux disease without esophagitis (7) Cocaine dependence, uncomplicated Current Visit: Yes Status: Chronic (8) Tinea pedis Current Visit: Yes Status: Chronic Qualifiers: Laterality: bilateral Qualified Code(s): B35.3 - Tinea pedis (9) Uncomplicated alcohol abuse Current Visit: Yes Status: Chronic - AMA Did Patient Leave Against Medical Advice: Yes (Patient states he just can't stay. )
[2019-02-07] MEDS ORDERED: METHADONE HCL 10 MG TABLET (FOR DETOX USE ONLY) PO ONE (10:00)
[2019-02-08] MEDS ORDERED: METHADONE HCL 10 MG TABLET (FOR DETOX USE ONLY) PO ONE (10:00)
[2019-02-09] MEDS ORDERED: METHADONE HCL 5 MG TABLET (FOR DETOX USE ONLY) PO ONE (06:00)
== END 2019-02-06 19:05 | disposition left against medical advice (07) | DRG 770 ==
LOC: YASAS 20:05 → Y3N 02-05 02:02
PROVIDERS: ADMIT Surgery; ATTEND Surgery
PROC: HZ2ZZZZ Detoxification Services for Substance Abuse Treatment (ICD-10-PCS; principal; 2019-02-05)
DX: F11.23 Opioid dependence with withdrawal (principal); F13.230 Sedative, hypnotic or anxiolytic dependence with withdrawal, uncomplicated; F14.20 Cocaine dependence, uncomplicated; F10.10 Alcohol abuse, uncomplicated; F17.213 Nicotine dependence, cigarettes, with withdrawal; H55.00 Unspecified nystagmus; K21.9 Gastro-esophageal reflux disease without esophagitis; B35.3 Tinea pedis; Z88.8 Allergy status to other drugs, medicaments and biological substances; Z59.0 Homelessness
CPT/HCPCS: 36415; 80053; 85027; 86593

== ENCOUNTER 2019-04-11 09:12 | Inpatient (IN) | payer OTHER ==
[2019-04-11 10:33] VITALS: BMI 24.4
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
[2019-04-11] MEDS ORDERED: ACETAMINOPHEN 325 MG TABLET (FP) PO PRN ×2 (12:23)
[2019-04-11] MEDS ORDERED: MAGNESIUM HYDROX 2400MG/30ML ORAL SUSPENSION 30 ML CUP PO PRN (12:23)
[2019-04-11] MEDS ORDERED: IBUPROFEN 400 MG TABLET (FP) PO PRN (12:23)
[2019-04-11] MEDS ORDERED: MAGNESIUM CITRATE 300 ML BOTTLE PO PRN (12:23)
[2019-04-11] MEDS ORDERED: MAG HYDROX/AL HYDROX/SIMETH 30 ML UNIT-DOSE CUP PO PRN (12:23)
[2019-04-11] MEDS ORDERED: MELATONIN 5 MG TABLETS PO PRN (12:23)
[2019-04-11] MEDS ORDERED: BISMUTH SUBSALICYLATE 524 MG/30 ML UD PO PRN (12:23)
[2019-04-11] MEDS ORDERED: MENTHOL/PHENOL 1 EACH UD MM PRN (12:23)
[2019-04-11] MEDS ORDERED: cloNIDine HCL 0.1 MG TABLET PO PRN (12:25)
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
[2019-04-11] MEDS: hydrOXYzine PAMOATE 25 MG CAPSULE (FP) PO PRN (18:49)
[2019-04-11] MEDS ORDERED: traZODone HCL 100 MG TABLET (FP) PO SCH (22:00)
[2019-04-11] MEDS ORDERED: THIAMINE HCL 100 MG TABLET (FP) PO SCH (22:00)
[2019-04-11] MEDS ORDERED: METHADONE HCL 10 MG TABLET (FOR DETOX USE ONLY) PO ONE (23:00)
[2019-04-12] MEDS ORDERED: METHADONE HCL 10 MG TABLET (FOR DETOX USE ONLY) PO ONE (10:00)
[2019-04-12] MEDS ORDERED: PRENATAL VITAMINS W/ FOLIC ACID TABLET (FP) PO SCH (10:00)
[2019-04-12 11:53] LABS: HEMATOCRIT 41.8 % (35.4-49); HEMOGLOBIN 13.9 GM/dL (11.7-16.9); MCH 29.8 pg (25.7-33.7); MCHC 33.3 g/dl (32.0-35.9); MEAN CELL VOLUME 89.5 fl (80-96); MEAN PLT VOLUME 9.3 fl (7.5-11.1); PLATELET COUNT 185 K/MM3 (134-434); RBC 4.67 M/mm3 (4.00-5.60); RDW 14.6 % (11.9-15.9); WHITE BLOOD COUNT 5.1 K/mm3 (4.0-10.0)
[2019-04-12 12:11] LABS: ALBUMIN 3.2 g/dl (3.4-5.0); BILIRUBIN,TOTAL 0.3 mg/dL (0.2-1); BLOOD UREA NITROGEN 11.9 mg/dL (7-18); CALCIUM 8.7 mg/dL (8.5-10.1); CREATININE 0.8 mg/dL (0.55-1.3); POTASSIUM 4.1 mmol/L (3.5-5.1)
--- NOTE | 2019-04-12 12:37 | PN ---
[facility] COWS - Scale Resting Pulse: 0= NV 80 or Below Sweatin= Chills/Flushing Restless Observation: 1= Difficult to Sit Still Pupil Size: 1= Pupils >than Normal Bone or Joint Aches: 2= Severe Diffuse Aches Runny Nose/ Eye Tearin= Nasal Congestion GI Upset > 30mins: 2= Nausea/Diarrhea Tremor Observation of Outstretched Hands: 2= Slight Tremor Visible Yawning Observation: 2= >3x During Session Anxiety or Irritability: 2=Irritable/Anxious Goose Flesh Skin: 0=Smooth Skin COWS Score: 14 [facility] Progress Note (SOAP) Subjective: alert,irritable,anxious,pain in the body and back Objective: 04/12/19 12:36 Vital Signs Temperature 97.9 F 04/12/19 09:27 Pulse Rate 68 04/12/19 09:27 Respiratory Rate 18 04/12/19 09:27 Blood Pressure 99/58 L 04/12/19 09:27 O2 Sat by Pulse Oximetry (%) Laboratory Last Values WBC 5.1 K/mm3 (4.0-10.0) 04/12/19 07:00 RBC 4.67 M/mm3 (4.00-5.60) 04/12/19 07:00 Hgb 13.9 GM/dL (11.7-16.9) 04/12/19 07:00 Hct 41.8 % (35.4-49) 04/12/19 07:00 MCV 89.5 fl (80-96) 04/12/19 07:00 MCH 29.8 pg (25.7-33.7) 04/12/19 07:00 MCHC 33.3 g/dl (32.0-35.9) 04/12/19 07:00 RDW 14.6 % (11.9-15.9) 04/12/19 07:00 Plt Count 185 K/MM3 (134-434) 04/12/19 07:00 MPV 9.3 fl (7.5-11.1) 04/12/19 07:00 Sodium 142 mmol/L (136-145) 04/12/19 07:00 Potassium 4.1 mmol/L (3.5-5.1) 04/12/19 07:00 Chloride 108 mmol/L (98-107) H 04/12/19 07:00 Carbon Dioxide 30 mmol/L (21-32) 04/12/19 07:00 Anion Gap 5 MMOL/L (8-16) L 04/12/19 07:00 BUN 11.9 mg/dL (7-18) 04/12/19 07:00 Creatinine 0.8 mg/dL (0.55-1.3) 04/12/19 07:00 Est GFR (CKD-EPI)AfAm 135.08 04/12/19 07:00 Est GFR (CKD-EPI)NonAf 116.55 04/12/19 07:00 Random Glucose 93 mg/dL (74-106) 04/12/19 07:00 Calcium 8.7 mg/dL (8.5-10.1) 04/12/19 07:00 Total Bilirubin 0.3 mg/dL (0.2-1) 04/12/19 07:00 AST 29 U/L (15-37) 04/12/19 07:00 ALT 49 U/L (13-61) 04/12/19 07:00 Alkaline Phosphatase 90 U/L (45-117) 04/12/19 07:00 Total Protein 6.0 g/dl (6.4-8.2) L 04/12/19 07:00 Albumin 3.2 g/dl (3.4-5.0) L 04/12/19 07:00 04/12/19 12:37 rpr pending Assessment: 04/12/19 12:37 withdrawal symptom Plan: continue detox
[2019-04-12] MEDS: hydrOXYzine PAMOATE 25 MG CAPSULE (FP) PO PRN (16:27)
[2019-04-12 17:22] VITALS: BP 121/80; PULSE 102; TEMP 97
[2019-04-13] MEDS ORDERED: METHADONE HCL 10 MG TABLET (FOR DETOX USE ONLY) PO ONE (10:00)
[2019-04-14] MEDS ORDERED: METHADONE HCL 10 MG TABLET (FOR DETOX USE ONLY) PO ONE (10:00)
[2019-04-15] MEDS ORDERED: METHADONE HCL 5 MG TABLET (FOR DETOX USE ONLY) PO ONE (06:00)
== END 2019-04-12 17:32 | disposition home or self-care (01) | DRG 773 ==
LOC: YASAS 09:12 → Y3N 14:33
PROVIDERS: ADMIT Surgery; ATTEND Surgery
PROC: HZ2ZZZZ Detoxification Services for Substance Abuse Treatment (ICD-10-PCS; principal; 2019-04-11)
DX: F11.23 Opioid dependence with withdrawal (principal); F14.20 Cocaine dependence, uncomplicated; F17.210 Nicotine dependence, cigarettes, uncomplicated; F39 Unspecified mood [affective] disorder; F19.24 Other psychoactive substance dependence with psychoactive substance-induced mood disorder; F41.8 Other specified anxiety disorders; F32.9 Major depressive disorder, single episode, unspecified; Z91.5 Personal history of self-harm
CPT/HCPCS: 36415; 80053; 85027; 86593; J0735

== ENCOUNTER 2021-01-13 10:14 | Inpatient (IN) | payer OTHER ==
[2021-01-13 10:49] VITALS: BMI 22.0
[2021-01-13] MEDS ORDERED: MENTHOL/PHENOL 1 EACH UD MM PRN (16:14)
[2021-01-13] MEDS ORDERED: ACETAMINOPHEN 325 MG TABLET (FP) PO PRN ×2 (16:14)
[2021-01-13] MEDS ORDERED: BISMUTH SUBSALICYLATE 524 MG/30 ML UD PO PRN (16:14)
[2021-01-13] MEDS ORDERED: MAG HYDROX/AL HYDROX/SIMETH 30 ML UNIT-DOSE CUP PO PRN (16:14)
[2021-01-13] MEDS ORDERED: METHOCARBAMOL 500 MG TABLET PO PRN (16:14)
[2021-01-13] MEDS ORDERED: MAGNESIUM CITRATE 300 ML BOTTLE PO PRN (16:14)
[2021-01-13] MEDS ORDERED: ONDANSETRON *ODT* 4 MG TABLET SL PRN (16:14)
[2021-01-13] MEDS ORDERED: MAGNESIUM HYDROX 2400MG/30ML ORAL SUSPENSION 30 ML CUP PO PRN (16:14)
[2021-01-13] MEDS ORDERED: NICOTINE POLACRILEX 2 MG GUM BUC PRN (16:14)
[2021-01-13] MEDS ORDERED: IBUPROFEN 400 MG TABLET (FP) PO PRN (16:14)
[2021-01-13] MEDS ORDERED: cloNIDine HCL 0.1 MG TABLET PO PRN (16:14)
[2021-01-13] MEDS ORDERED: METHADONE HCL 10 MG TABLET (FOR DETOX USE ONLY) PO ONE (17:15)
[2021-01-13] MEDS: hydrOXYzine PAMOATE 25 MG CAPSULE (FP) PO SCH ×2 (18:33→23:02)
[2021-01-13] MEDS ORDERED: THIAMINE HCL 100 MG TABLET (FP) PO SCH (22:00)
[2021-01-13] MEDS ORDERED: MELATONIN 5 MG TABLETS PO SCH (22:00)
[2021-01-14] MEDS: hydrOXYzine PAMOATE 25 MG CAPSULE (FP) PO SCH ×2 (05:50→10:57)
[2021-01-14] MEDS ORDERED: METHADONE HCL 10 MG TABLET (FOR DETOX USE ONLY) ONE (08:27)
[2021-01-14] MEDS ORDERED: METHADONE HCL 5 MG TABLET (FOR DETOX USE ONLY) ONE (08:27)
[2021-01-14 09:41] VITALS: PULSE 62
[2021-01-14] MEDS ORDERED: METHADONE (DETOX) 20 MG, METHADONE (DETOX) 5 MG PO ONE (10:00)
[2021-01-14] MEDS ORDERED: PRENATAL VITAMINS W/ FOLIC ACID TABLET (FP) PO SCH (10:00)
[2021-01-14] MEDS ORDERED: NICOTINE 21 MG/24 HOURS TOPICAL PATCH TD SCH (10:00)
[2021-01-14 10:34] LABS: POTASSIUM 4.3 mmol/L (3.5-5.1)
[2021-01-14 10:35] LABS: HEMOGLOBIN 14.8 GM/dL (11.7-16.9); MCH 30.3 pg (25.7-33.7); MCHC 33.7 g/dl (32.0-35.9); MEAN CELL VOLUME 89.9 fl (80-96); MEAN PLT VOLUME 9.9 fl (7.5-11.1); PLATELET COUNT 174 K/MM3 (134-434); RBC 4.89 M/mm3 (4.00-5.60); RDW 14.8 % (11.9-15.9); WHITE BLOOD COUNT 5.3 K/mm3 (4.0-10.0)
[2021-01-14 10:45] LABS: ALBUMIN 3.2 g/dl (3.4-5.0); BLOOD UREA NITROGEN 17.4 mg/dL (7-18)
[2021-01-14 10:48] LABS: CREATININE 0.7 mg/dL (0.55-1.3)
[2021-01-14 10:49] LABS: BILIRUBIN,TOTAL 0.5 mg/dL (0.2-1); TOT PROT 6.1 g/dl (6.4-8.2)
[2021-01-14 12:56] VITALS: BP 130/63; TEMP 98.7
[2021-01-15] MEDS ORDERED: METHADONE HCL 10 MG TABLET (FOR DETOX USE ONLY) PO ONE (10:00)
[2021-01-16] MEDS ORDERED: METHADONE (DETOX) 10 MG, METHADONE (DETOX) 5 MG PO ONE (10:00)
[2021-01-17] MEDS ORDERED: METHADONE HCL 10 MG TABLET (FOR DETOX USE ONLY) PO ONE (10:00)
[2021-01-18] MEDS ORDERED: METHADONE HCL 5 MG TABLET (FOR DETOX USE ONLY) PO ONE (06:00)
== END 2021-01-14 13:05 | disposition left against medical advice (07) | DRG 770 ==
LOC: YASAS 10:14 → Y6N 16:23
PROVIDERS: ADMIT Allergy & Immunology; ATTEND Allergy & Immunology
PROC: HZ2ZZZZ Detoxification Services for Substance Abuse Treatment (ICD-10-PCS; principal; 2021-01-13)
DX: F11.23 Opioid dependence with withdrawal (principal); F14.20 Cocaine dependence, uncomplicated; F17.210 Nicotine dependence, cigarettes, uncomplicated; K21.9 Gastro-esophageal reflux disease without esophagitis; L53.9 Erythematous condition, unspecified; Z88.8 Allergy status to other drugs, medicaments and biological substances
CPT/HCPCS: 36415; 80053; 85027; 86780; 93005; 93010; C9803; J0735; U0003; U0005

== ENCOUNTER 2021-01-26 05:12 | Inpatient (IN) | payer OTHER ==
[2021-01-26] MEDS ORDERED: IBUPROFEN 400 MG TABLET (FP) PO PRN (05:45)
[2021-01-26] MEDS ORDERED: MENTHOL/PHENOL 1 EACH UD MM PRN (05:45)
[2021-01-26] MEDS ORDERED: MAGNESIUM HYDROX 2400MG/30ML ORAL SUSPENSION 30 ML CUP PO PRN (05:45)
[2021-01-26] MEDS ORDERED: MAGNESIUM CITRATE 300 ML BOTTLE PO PRN (05:45)
[2021-01-26] MEDS ORDERED: ACETAMINOPHEN 325 MG TABLET (FP) PO PRN ×2 (05:45)
[2021-01-26] MEDS ORDERED: MAG HYDROX/AL HYDROX/SIMETH 30 ML UNIT-DOSE CUP PO PRN (05:45)
[2021-01-26] MEDS ORDERED: METHOCARBAMOL 500 MG TABLET PO PRN (05:45)
[2021-01-26] MEDS ORDERED: BISMUTH SUBSALICYLATE 524 MG/30 ML UD PO PRN (05:45)
[2021-01-26] MEDS ORDERED: NICOTINE POLACRILEX 2 MG GUM BUC PRN (05:45)
[2021-01-26] MEDS ORDERED: cloNIDine HCL 0.1 MG TABLET PO PRN (05:48)
[2021-01-26] MEDS ORDERED: diazePAM 5 MG TABLET PO PRN (05:48)
[2021-01-26] MEDS ORDERED: METHADONE HCL 10 MG TABLET (FOR DETOX USE ONLY) PO ONE (05:48)
[2021-01-26] MEDS: diazePAM 5 MG TABLET PO SCH ×4 (07:13→22:56)
[2021-01-26] MEDS: PRENATAL VITAMINS W/ FOLIC ACID TABLET (FP) PO SCH (12:06)
[2021-01-26] MEDS: NICOTINE 21 MG/24 HOURS TOPICAL PATCH TD SCH (12:06)
[2021-01-26] MEDS: CEPHALEXIN MONOHYDRATE 500 MG CAPSULE (UD) PO SCH ×2 (12:08→18:24)
[2021-01-26] MEDS ORDERED: traZODone HCL 100 MG TABLET (FP) PO SCH ×2 (22:00)
[2021-01-26] MEDS ORDERED: MELATONIN 5 MG TABLETS PO SCH (22:00)
[2021-01-26] MEDS ORDERED: THIAMINE HCL 100 MG TABLET (FP) PO SCH (22:00)
[2021-01-27] MEDS: CEPHALEXIN MONOHYDRATE 500 MG CAPSULE (UD) PO SCH ×3 (00:16→11:23)
[2021-01-27] MEDS: ONDANSETRON *ODT* 4 MG TABLET SL PRN ×2 (01:46→12:03)
[2021-01-27] MEDS ORDERED: diazePAM 5 MG TABLET PO SCH (06:00)
[2021-01-27] MEDS ORDERED: METHADONE HCL 10 MG TABLET (FOR DETOX USE ONLY) ONE (09:00)
[2021-01-27] MEDS ORDERED: METHADONE HCL 5 MG TABLET (FOR DETOX USE ONLY) ONE (09:00)
[2021-01-27] MEDS ORDERED: METHADONE (DETOX) 20 MG, METHADONE (DETOX) 5 MG PO ONE (10:00)
[2021-01-27 11:20] VITALS: BP 138/69; PULSE 76; TEMP 98.6
[2021-01-27] MEDS: NICOTINE 21 MG/24 HOURS TOPICAL PATCH TD SCH (11:23)
[2021-01-27] MEDS: PRENATAL VITAMINS W/ FOLIC ACID TABLET (FP) PO SCH (11:23)
[2021-01-27] MEDS ORDERED: TRIMETHOBENZAMIDE HCL 200MG/2ML INJ IM ONE (11:46)
[2021-01-28] MEDS ORDERED: diazePAM 5 MG TABLET PO SCH (06:00)
[2021-01-28] MEDS ORDERED: METHADONE HCL 10 MG TABLET (FOR DETOX USE ONLY) PO ONE (10:00)
[2021-01-29] MEDS ORDERED: diazePAM 5 MG TABLET PO ONE (06:00)
[2021-01-29] MEDS ORDERED: METHADONE (DETOX) 10 MG, METHADONE (DETOX) 5 MG PO ONE (10:00)
[2021-01-30] MEDS ORDERED: METHADONE HCL 10 MG TABLET (FOR DETOX USE ONLY) PO ONE (10:00)
[2021-01-31] MEDS ORDERED: METHADONE HCL 5 MG TABLET (FOR DETOX USE ONLY) PO ONE (06:00)
== END 2021-01-27 13:18 | disposition left against medical advice (07) | DRG 770 ==
LOC: YASAS 05:12 → Y6N 05:46
PROVIDERS: ADMIT Allergy & Immunology; ATTEND Allergy & Immunology
PROC: HZ2ZZZZ Detoxification Services for Substance Abuse Treatment (ICD-10-PCS; principal; 2021-01-26)
DX: F11.23 Opioid dependence with withdrawal (principal); F13.230 Sedative, hypnotic or anxiolytic dependence with withdrawal, uncomplicated; F14.20 Cocaine dependence, uncomplicated; F17.210 Nicotine dependence, cigarettes, uncomplicated; F31.9 Bipolar disorder, unspecified; F41.9 Anxiety disorder, unspecified; G47.00 Insomnia, unspecified; K21.9 Gastro-esophageal reflux disease without esophagitis; B18.2 Chronic viral hepatitis C; Z87.828 Personal history of other (healed) physical injury and trauma; Z56.0 Unemployment, unspecified; Z88.8 Allergy status to other drugs, medicaments and biological substances
CPT/HCPCS: Q0162

== ENCOUNTER 2021-04-27 21:33 | Inpatient (IN) | payer OTHER ==
[2021-04-28 01:44] VITALS: BMI 21.1
[2021-04-28] MEDS ORDERED: ACETAMINOPHEN 325 MG TABLET (FP) PO PRN ×2 (02:13)
[2021-04-28] MEDS ORDERED: methaDONE HCL 10 MG TABLET (FOR DETOX USE ONLY) PO ONE (02:13)
[2021-04-28] MEDS ORDERED: ONDANSETRON *ODT* 4 MG TABLET SL PRN (02:13)
[2021-04-28] MEDS ORDERED: METHOCARBAMOL 500 MG TABLET PO PRN (02:13)
[2021-04-28] MEDS ORDERED: MAGNESIUM HYDROX 2400MG/30ML ORAL SUSPENSION 30 ML CUP PO PRN (02:13)
[2021-04-28] MEDS ORDERED: BISMUTH SUBSALICYLATE 524 MG/30 ML PO PRN (02:13)
[2021-04-28] MEDS ORDERED: MAGNESIUM CITRATE 300 ML BOTTLE PO PRN (02:13)
[2021-04-28] MEDS ORDERED: MAG HYDROX/AL HYDROX/SIMETH 30 ML UNIT-DOSE CUP PO PRN (02:13)
[2021-04-28] MEDS ORDERED: NICOTINE POLACRILEX 2 MG GUM BUC PRN (02:13)
[2021-04-28] MEDS ORDERED: IBUPROFEN 400 MG TABLET (FP) PO PRN (02:13)
[2021-04-28] MEDS ORDERED: cloNIDine HCL 0.1 MG TABLET PO PRN (02:13)
[2021-04-28] MEDS ORDERED: MENTHOL/PHENOL 1 EACH UD MM PRN (02:13)
[2021-04-28 09:55] VITALS: BP 109/63; PULSE 55; TEMP 97.1
[2021-04-28] MEDS ORDERED: PRENATAL VITAMINS W/ FOLIC ACID TABLET (FP) PO SCH (10:00)
[2021-04-28] MEDS ORDERED: NICOTINE 21 MG/24 HOURS TOPICAL PATCH TD SCH (10:00)
[2021-04-28] MEDS ORDERED: diazePAM 5 MG TABLET PO PRN (11:25)
[2021-04-28] MEDS ORDERED: hydrOXYzine PAMOATE 25 MG CAPSULE (FP) PO PRN (11:26)
[2021-04-28] MEDS ORDERED: THIAMINE HCL 100 MG TABLET (FP) PO SCH (22:00)
[2021-04-28] MEDS ORDERED: MELATONIN 5 MG TABLETS PO SCH (22:00)
[2021-04-30] MEDS ORDERED: methaDONE HCL 10 MG TABLET (FOR DETOX USE ONLY) PO ONE (10:00)
[2021-05-02] MEDS ORDERED: methaDONE HCL 10 MG TABLET (FOR DETOX USE ONLY) PO ONE (10:00)
== END 2021-04-28 12:54 | disposition left against medical advice (07) | DRG 770 ==
LOC: YASAS 21:33 → Y3N 04-28 02:20
PROVIDERS: ADMIT Allergy & Immunology; ATTEND Allergy & Immunology
PROC: HZ2ZZZZ Detoxification Services for Substance Abuse Treatment (ICD-10-PCS; principal; 2021-04-28)
DX: F11.23 Opioid dependence with withdrawal (principal); F14.20 Cocaine dependence, uncomplicated; F17.210 Nicotine dependence, cigarettes, uncomplicated; F31.9 Bipolar disorder, unspecified; G47.00 Insomnia, unspecified; K21.9 Gastro-esophageal reflux disease without esophagitis; B19.20 Unspecified viral hepatitis C without hepatic coma; Z56.0 Unemployment, unspecified; Z59.0 Homelessness
CPT/HCPCS: 36415; 86780; 93005; 93010; C9803; U0003; U0005

== ENCOUNTER 2021-05-07 19:48 | Inpatient (IN) | payer OTHER ==
[2021-05-07 23:40] VITALS: BMI 20.8
[2021-05-08] MEDS ORDERED: ONDANSETRON *ODT* 4 MG TABLET SL PRN (02:01)
[2021-05-08] MEDS ORDERED: NICOTINE POLACRILEX 2 MG GUM BUC PRN (02:01)
[2021-05-08] MEDS ORDERED: MAGNESIUM CITRATE 300 ML BOTTLE PO PRN (02:01)
[2021-05-08] MEDS ORDERED: MAGNESIUM HYDROX 2400MG/30ML ORAL SUSPENSION 30 ML CUP PO PRN (02:01)
[2021-05-08] MEDS ORDERED: MAG HYDROX/AL HYDROX/SIMETH 30 ML UNIT-DOSE CUP PO PRN (02:01)
[2021-05-08] MEDS ORDERED: MENTHOL/PHENOL 1 EACH UD MM PRN (02:01)
[2021-05-08] MEDS ORDERED: ACETAMINOPHEN 325 MG TABLET (FP) PO PRN ×2 (02:01)
[2021-05-08] MEDS ORDERED: METHOCARBAMOL 500 MG TABLET PO PRN (02:01)
[2021-05-08] MEDS ORDERED: BISMUTH SUBSALICYLATE 524 MG/30 ML PO PRN (02:01)
[2021-05-08] MEDS ORDERED: IBUPROFEN 400 MG TABLET (FP) PO PRN (02:01)
[2021-05-08] MEDS ORDERED: cloNIDine HCL 0.1 MG TABLET PO PRN (02:06)
[2021-05-08] MEDS ORDERED: methaDONE HCL 10 MG TABLET (FOR DETOX USE ONLY) PO ONE (02:06)
[2021-05-08] MEDS ORDERED: methaDONE HCL 10 MG TABLET (FOR DETOX USE ONLY) ONE (03:13)
[2021-05-08 10:21] VITALS: TEMP 97
[2021-05-08] MEDS: NICOTINE 21 MG/24 HOURS TOPICAL PATCH TD SCH (11:21)
[2021-05-08] MEDS: PRENATAL VITAMINS W/ FOLIC ACID TABLET (FP) PO SCH (11:21)
[2021-05-08 14:32] VITALS: BP 105/59; PULSE 62
[2021-05-08] MEDS ORDERED: MELATONIN 5 MG TABLETS PO SCH (22:00)
[2021-05-08] MEDS ORDERED: THIAMINE HCL 100 MG TABLET (FP) PO SCH (22:00)
[2021-05-09] MEDS ORDERED: methaDONE HCL 10 MG TABLET (FOR DETOX USE ONLY) ONE (09:07)
[2021-05-09] MEDS: PRENATAL VITAMINS W/ FOLIC ACID TABLET (FP) PO SCH (11:23)
[2021-05-09] MEDS: NICOTINE 21 MG/24 HOURS TOPICAL PATCH TD SCH (11:23)
[2021-05-10] MEDS ORDERED: methaDONE HCL 10 MG TABLET (FOR DETOX USE ONLY) PO ONE (10:00)
[2021-05-12] MEDS ORDERED: methaDONE HCL 10 MG TABLET (FOR DETOX USE ONLY) PO ONE (10:00)
== END 2021-05-09 13:14 | disposition left against medical advice (07) | DRG 770 ==
LOC: YASAS 19:48 → Y3N 05-08 02:39
PROVIDERS: ADMIT Allergy & Immunology; ATTEND Allergy & Immunology
PROC: HZ2ZZZZ Detoxification Services for Substance Abuse Treatment (ICD-10-PCS; principal; 2021-05-08)
DX: F11.23 Opioid dependence with withdrawal (principal); F14.20 Cocaine dependence, uncomplicated; F17.210 Nicotine dependence, cigarettes, uncomplicated; F31.9 Bipolar disorder, unspecified; K21.9 Gastro-esophageal reflux disease without esophagitis; B19.20 Unspecified viral hepatitis C without hepatic coma; Z88.8 Allergy status to other drugs, medicaments and biological substances
CPT/HCPCS: C9803; Q0162; U0003; U0005

== ENCOUNTER 2022-04-29 14:39 | Inpatient (IN) | payer OTHER ==
[2022-04-29 15:52] VITALS: BMI 23.7
[2022-04-29] MEDS ORDERED: IBUPROFEN 400 MG TABLET (FP) PO PRN (17:45)
[2022-04-29] MEDS ORDERED: BISMUTH SUBSALICYLATE 524 MG/30 ML PO PRN (17:45)
[2022-04-29] MEDS ORDERED: DICYCLOMINE HCL 10 MG CAPSULE PO PRN (17:45)
[2022-04-29] MEDS ORDERED: MAGNESIUM CITRATE 300 ML BOTTLE PO PRN (17:45)
[2022-04-29] MEDS ORDERED: IBUPROFEN 600 MG TABLET (FP) PO PRN (17:45)
[2022-04-29] MEDS ORDERED: LOPERAMIDE HCL 2 MG CAPSULE PO PRN (17:45)
[2022-04-29] MEDS ORDERED: MAG HYDROX/AL HYDROX/SIMETH 30 ML UNIT-DOSE CUP PO PRN (17:45)
[2022-04-29] MEDS ORDERED: BENZOCAINE/MENTHOL (CHLORASEPTIC ) LOZENGE MM PRN (17:45)
[2022-04-29] MEDS ORDERED: MAGNESIUM HYDROX 2400MG/30ML ORAL SUSPENSION 30 ML CUP PO PRN (17:45)
[2022-04-29] MEDS ORDERED: ACETAMINOPHEN 325 MG TABLET (FP) PO PRN ×2 (17:45)
[2022-04-29] MEDS ORDERED: NALOXONE HCL 0.4 MG/ML VIAL IM PRN (17:45)
[2022-04-29] MEDS ORDERED: methaDONE HCL 10 MG TABLET (FOR DETOX USE ONLY) PO ONE (19:00)
[2022-04-29] MEDS: METHOCARBAMOL 500 MG TABLET PO PRN (19:10)
[2022-04-29] MEDS: NICOTINE 10 MG CARTRIDGE (INHALER) IH PRN (21:07)
[2022-04-29] MEDS ORDERED: MELATONIN 5 MG TABLETS PO SCH (22:00)
[2022-04-29] MEDS: THIAMINE HCL 100 MG TABLET (FP) PO SCH (22:11)
[2022-04-29] MEDS: SULFAMETHOXAZOLE/TRIMETHOPRIM 800MG/160MG D.S. TABLET PO SCH (22:11)
[2022-04-29] MEDS: cloNIDine HCL 0.1 MG TABLET PO PRN (22:12)
[2022-04-30] MEDS ORDERED: methaDONE HCL 10 MG TABLET (FOR DETOX USE ONLY) ONE (09:08)
[2022-04-30] MEDS: SULFAMETHOXAZOLE/TRIMETHOPRIM 800MG/160MG D.S. TABLET PO SCH ×2 (10:11→21:44)
[2022-04-30] MEDS: PRENATAL VITAMINS W/ FOLIC ACID TABLET (FP) PO SCH (10:11)
[2022-04-30] MEDS: NICOTINE 10 MG CARTRIDGE (INHALER) IH PRN (10:12)
[2022-04-30] MEDS: NICOTINE 7 MG/24 HOURS TOPICAL PATCH TD SCH (10:12)
[2022-04-30] MEDS: cloNIDine HCL 0.1 MG TABLET PO PRN (18:04)
[2022-04-30] MEDS: THIAMINE HCL 100 MG TABLET (FP) PO SCH (21:44)
[2022-04-30] MEDS: METHOCARBAMOL 500 MG TABLET PO PRN (21:49)
[2022-04-30] MEDS ORDERED: CHLORHEXIDINE GLUCONATE 4% CLEANSER FOR DECOLONIZATION TP SCH (22:00)
[2022-04-30] MEDS: traZODone HCL 50 MG TABLET (FP) PO PRN (23:51)
[2022-05-01] MEDS ORDERED: methaDONE HCL 10 MG TABLET (FOR DETOX USE ONLY) PO ONE (10:00)
[2022-05-01] MEDS: PRENATAL VITAMINS W/ FOLIC ACID TABLET (FP) PO SCH (11:22)
[2022-05-01] MEDS: SULFAMETHOXAZOLE/TRIMETHOPRIM 800MG/160MG D.S. TABLET PO SCH ×2 (11:23→22:41)
[2022-05-01] MEDS: METHOCARBAMOL 500 MG TABLET PO PRN ×2 (11:23→22:40)
[2022-05-01] MEDS: NICOTINE 7 MG/24 HOURS TOPICAL PATCH TD SCH (11:24)
[2022-05-01] MEDS: THIAMINE HCL 100 MG TABLET (FP) PO SCH (22:40)
[2022-05-01] MEDS: traZODone HCL 50 MG TABLET (FP) PO PRN (22:40)
[2022-05-01] MEDS: NICOTINE 10 MG CARTRIDGE (INHALER) IH PRN (22:43)
[2022-05-02] MEDS ORDERED: methaDONE HCL 10 MG TABLET (FOR DETOX USE ONLY) ONE (08:59)
[2022-05-02] MEDS: SULFAMETHOXAZOLE/TRIMETHOPRIM 800MG/160MG D.S. TABLET PO SCH ×2 (10:45→22:05)
[2022-05-02] MEDS: PRENATAL VITAMINS W/ FOLIC ACID TABLET (FP) PO SCH (10:45)
[2022-05-02] MEDS: METHOCARBAMOL 500 MG TABLET PO PRN (10:45)
[2022-05-02] MEDS: NICOTINE 7 MG/24 HOURS TOPICAL PATCH TD SCH (10:46)
[2022-05-02] MEDS: NICOTINE 10 MG CARTRIDGE (INHALER) IH PRN ×2 (10:46→22:06)
[2022-05-02] MEDS: traZODone HCL 50 MG TABLET (FP) PO PRN (22:05)
[2022-05-02] MEDS: THIAMINE HCL 100 MG TABLET (FP) PO SCH (22:05)
[2022-05-03] MEDS ORDERED: methaDONE HCL 10 MG TABLET (FOR DETOX USE ONLY) PO ONE (10:00)
[2022-05-03] MEDS: PRENATAL VITAMINS W/ FOLIC ACID TABLET (FP) PO SCH (10:33)
[2022-05-03] MEDS: SULFAMETHOXAZOLE/TRIMETHOPRIM 800MG/160MG D.S. TABLET PO SCH ×2 (10:34→22:16)
[2022-05-03] MEDS: METHOCARBAMOL 500 MG TABLET PO PRN (10:34)
[2022-05-03] MEDS: NICOTINE 10 MG CARTRIDGE (INHALER) IH PRN (10:35)
[2022-05-03] MEDS: NICOTINE 7 MG/24 HOURS TOPICAL PATCH TD SCH (10:35)
[2022-05-03] MEDS: THIAMINE HCL 100 MG TABLET (FP) PO SCH (22:16)
[2022-05-03] MEDS: traZODone HCL 50 MG TABLET (FP) PO PRN (22:16)
[2022-05-04 06:03] VITALS: TEMP 97.3
[2022-05-04 09:20] VITALS: BP 136/82; PULSE 71
== END 2022-05-04 10:14 | disposition home or self-care (01) | DRG 773 ==
LOC: YASAS 14:39 → Y6N 17:03
PROVIDERS: ADMIT Allergy & Immunology; ATTEND Surgery
PROC: HZ2ZZZZ Detoxification Services for Substance Abuse Treatment (ICD-10-PCS; principal; 2022-04-29)
DX: F11.23 Opioid dependence with withdrawal (principal); F14.20 Cocaine dependence, uncomplicated; F17.210 Nicotine dependence, cigarettes, uncomplicated; F19.282 Other psychoactive substance dependence with psychoactive substance-induced sleep disorder; F19.280 Other psychoactive substance dependence with psychoactive substance-induced anxiety disorder; F19.24 Other psychoactive substance dependence with psychoactive substance-induced mood disorder; F31.9 Bipolar disorder, unspecified; F90.9 Attention-deficit hyperactivity disorder, unspecified type; B19.20 Unspecified viral hepatitis C without hepatic coma; M70.21 Olecranon bursitis, right elbow
CPT/HCPCS: C9803-CS; J0735; U0003; U0005